=== PATIENT | female | born 1940 ===

== ENCOUNTER 2017-02-19 07:00 | Inpatient (IN) | payer MEDICAID, MEDICARE ==
--- NOTE | 2017-02-19 07:23 | ED PDOC ---
HPI: Abdomen Time Seen by Provider: 02/19/17 07:12 Chief Complaint (Provider): Rectal bleeding History Per: Patient, Family History/Exam Limitations: no limitations Onset/Duration Of Symptoms: Hrs Current Symptoms Are (Timing): Still Present Severity: Mild Last Bowel Movement: Yesterday (last night) Additional Complaint(s): Patient is a 76 year old female with hx of PE x 2, on coumadin, htn, gastritis, and hypothyroidism, presenting to the ED complaining of rectal bleeding since last night. Patient reports originally bright red blood in her stool, then dark red blood in her stool. Patient had a routine colonoscopy x2 weeks ago which she believes was normal (done at [facility]). Patient also complains of shortness of breath, but states she is always short of breath. Denies abdominal pain, vomiting, dysuria, or lightheadedness. PMD: Dr. Justo Yap Past Medical History Reviewed: Historical Data, Nursing Documentation, Vital Signs Vital Signs: Last Vital Signs Temp 97.8 F 02/19/17 13:07 Pulse 103 H 02/19/17 13:07 Resp 20 02/19/17 13:07 BP 123/65 02/19/17 13:07 Pulse Ox 98 02/19/17 13:07 - Medical History PMH: GERD, HTN, Hypothyroidism, Pneumonia, Pulmonary Embolism - Surgical History Surgical History: No Surg Hx - Family History Family History: States: No Known Family Hx - Immunization History Hx Tetanus Toxoid Vaccination: No Hx Influenza Vaccination: No Hx Pneumococcal Vaccination: No - Home Medications Home Medications: Ambulatory Orders Medication Instructions Recorded Albuterol Sulfate [Proair Hfa] 2 puff IH BID PRN 02/19/17 Atenolol [Tenormin] 25 mg PO DAILY 02/19/17 Doxepin [Sinequan] 25 mg PO DAILY 02/19/17 Levothyroxine [Synthroid] 100 mcg PO DAILY 02/19/17 Omeprazole 20 mg PO DAILY 02/19/17 Valsartan [Diovan] 160 mg PO DAILY 02/19/17 Warfarin Sodium [Jantoven] 5 mg PO HS 02/19/17 - Allergies Allergies/Adverse Reactions: Allergies Allergy/AdvReac Type Severity Reaction Status Date / Time No Known Allergies Allergy Verified 12/17/15 15:54 Review of Systems ROS Statement: Except As Marked, All Systems Reviewed And Found Negative Constitutional: Negative for: Fever, Chills ENT: Negative for: Ear Pain Cardiovascular: Negative for: Chest Pain, Palpitations, Paroxysmal Noc. Dyspnea , Light Headedness Respiratory: Positive for: Shortness of Breath (baseline) Gastrointestinal: Positive for: Hematochezia. Negative for: Nausea, Vomiting, Abdominal Pain, Diarrhea, Constipation Genitourinary Female: Negative for: Dysuria, Hematuria Musculoskeletal: Negative for: Neck Pain Skin: Negative for: Rash Neurological: Negative for: Weakness Psych: Negative for: Anxiety Physical Exam - Reviewed Nursing Documentation Reviewed: Yes Vital Signs Reviewed: Yes - Physical Exam Appears: Positive for: Well, Non-toxic, No Acute Distress Head Exam: Positive for: ATRAUMATIC, NORMAL INSPECTION, NORMOCEPHALIC Skin: Positive for: Normal Color, Warm, DRY Eye Exam: Positive for: Normal appearance, EOMI Neck: Positive for: Normal, Painless ROM Cardiovascular/Chest: Positive for: Tachycardia. Negative for: Gallop, Murmur Respiratory: Positive for: Normal Breath Sounds, Other (comfortable). Negative for: Accessory Muscle Use, Rhonchi, Respiratory Distress Gastrointestinal/Abdominal: Positive for: Normal Exam, Soft. Negative for: Tenderness, Mass, Distended, Guarding, Rebound Rectal: Positive for: Other (dark blood on rectal exam) Extremity: Positive for: Normal ROM Neurologic/Psych: Positive for: Alert, Oriented - Laboratory Results Result Diagrams: 02/19/17 07:50 02/19/17 07:50 Medical Decision Making Medical Decision Making: Time: 7:15 Impression: Lower GI bleed v Hemorrhoid vs ruptured diverticulum Plan: -labs -ivf 8:55AM Labs resulted and show hemoglobin at baseline (11). HR improved to 95 after 500cc NS. Bun midly elevated, consistent with GI Bleed. INR:2.7. Paged Dr. DRIVER. Do not see the utility of imaging at this time due to lack of pain and lack of tenderness on exam. Will need GI evaluation and likely endoscopy and repeat colonoscopy. Due to need for anticoagulation and elevated INR, combined with age and presenting tachycardia, will need tele observation for GI evaluation. EKG done at triage shows sinus tach at 105bpm with q waves in lateral leads. No prior for comparison. Denies chest pain and reports baseline shortness of breath. Spoke to Dr. Fitzpatrick who agrees with admission. Courtesy call to PMD Dr. Fracisco Meza called and requesting admission under his name. Reports GI doc is Dr. Blackman and consult placed to him and call made Scribe Attestation: Documented by Evonne Toro acting as a scribe for Nirmala Hill MD. Scribe Attestation: All medical record entries made by the Scribe were at my direction and personally dictated by me. I have reviewed the chart and agree that the record accurately reflects my personal performance of the history, physical exam, medical decision making, and the department course for this patient. I have also personally directed, reviewed, and agree with the discharge instructions and disposition. Disposition - Clinical Impression Clinical Impression: Rectal bleed - Disposition Disposition Time: 08:50 Condition: FAIR
[2017-02-19 08:23] LABS: BASO % 0.7 % (0.0-2.0); EOS # 0.2 K/uL (0.0-0.7); EOS % 3.7 % (0.0-4.0); HEMATOCRIT 33.7 % (34.0-47.0); LYMPH # 1.3 K/uL (1.0-4.3); MEAN CELL VOLUME 89.3 fl (81.0-99.0); MEAN CORPUSCULAR HEMOGLOBIN 29.2 pg (27.0-31.0); MEAN CORPUSCULAR HGB CONC 32.8 g/dL (33.0-37.0); MEAN PLATELET VOLUME 8.8 fl (7.2-11.7); MONO # 0.3 K/uL (0.0-0.8); MONO % 5.3 % (0.0-10.0); NEUT # 4.5 K/uL (1.8-7.0); NEUT % 70.3 % (50.0-75.0); RED CELL DISTRIBUTION WIDTH 15.1 % (11.5-14.5); WHITE BLOOD COUNT 6.3 K/uL (4.8-10.8)
[2017-02-19] MEDS ORDERED: Sodium Chloride 0.9% 1,000 ML IV SCH (08:30)
[2017-02-19 08:39] LABS: PARTIAL THROMBOPLASTIN TIME 34.9 SECONDS (23.3-32.5)
[2017-02-19 08:41] LABS: ALKALINE PHOSPHATASE 66 U/L (38-126); ALT/SGPT 25 U/L (9-52); AST/SGOT 26 U/L (14-36); BILIRUBIN,TOTAL 0.7 mg/dl (0.2-1.3); BLOOD UREA NITROGEN 21 mg/dl (7-17); CALCIUM 8.9 mg/dL (8.4-10.2); CARBON DIOXIDE 27 mmol/L (22-30); CHLORIDE 103 mmol/L (98-107); GFR AFRICAN-AMERICAN > 60; GLUCOSE,RANDOM 142 mg/dL (65-105); LIPASE 71 U/L (23-300); MAGNESIUM 1.8 MG/DL (1.6-2.3); PHOSPHOROUS 3.6 mg/dl (2.5-4.5); POTASSIUM 4.3 MMOL/L (3.6-5.0); SODIUM 143 mmol/l (132-148); TOTAL PROTEIN 7.1 G/DL (6.3-8.2)
[2017-02-19] MEDS ORDERED: Sodium Chloride 0.9% 1,000 ML IV ONE (13:08)
--- NOTE | 2017-02-19 16:58 | RAD ---
HISTORY: Shortness of breath. Semi erect portable study 15:50. COMPARISON: 12/17/2015. FINDINGS: LUNGS: No acute infiltrates. Chronic peripheral infiltrate/scarring right upper lobe. Chronic interstitial lung disease noted. PLEURA: No significant pleural effusion identified, no pneumothorax apparent. CARDIOVASCULAR: No radiographic findings to suggest acute or significant cardiovascular disease. OSSEOUS STRUCTURES: No significant abnormalities. VISUALIZED UPPER ABDOMEN: Normal. OTHER FINDINGS: None. IMPRESSION: No active disease. No significant interval change compared to the prior examination(s).
--- NOTE | 2017-02-19 17:07 | CP.CCUPN ---
CCU Subjective - Physician Review Subjective (Free Text): PIANO BENCH ASSEMBLER PROGRESS NOTE Patient examined, interim events reviewed, discussed with PMD: 76F, PMH: on AC x 24 yrs since meniscal knee surgery resulted in DVT then followed by PTE 12 yrs later and has been on coumadin since, h/o Pulm fibrosis ( IPF? ), no occupational exposure, non-smoker, HTN, hypothyroidism, GERD / Gastritis, underwent Upper and lower Endo 2 weeks ago: now c/o BRBPR onset last night. Denies any rectal or abdominal pain, no recent NASID use, denies any N/V , no dizziness, CP, LOC, falls. Patient did complain of SOB on admission in the ER. Presently sitting up in bed, appears non-distressed, but has had multiple small red bloody BMS >10x. Called by PMD for transfer to ICU for further mgmt. and observation. Afebrile, BP 140/70, HR 110 sinus, RR 16, 98% SPO2 on RA. Allergies: NKDA Home Meds: Valsartan, Warfarin, Omeprazole, Albuterol, Sinequan, Synthroid, Atenol ROS: as above, no other pertinent negs or positives on 12 system review. PMSFH: All nursing and physician documentation reviewed, no new historical data relevant to current medical problems. No other distress noted: EXAM- HEENT: no icterus, pupils equal and reactive NECK: no visible JVD, supple, carotids equal upstroke bilat/no bruits CHEST: decreased BS bases, bilat scattered crackles, no wheezes audible HEART: regular, distant, tachy S1S2, no murmur audible, no rubs. ABD: soft, no increased distention, no focal tenderness, no HSM. BS hypoactive , no abdominal bruits or other masses EXT: trace bilat leg edema, no peripheral/ digital cyanosis, no calf tenderness or palpable cords, distal pulses intact and symmetrical NEURO: no gross focal motor deficits SKIN: no rashes LABS: WBC= 6.3 HGB= 11.0 PLTs= 210K Na= 143 K= 4.3 HCO3= 27 BUN/Cr= 21/0.6 XR=730 PT= 28.7 / INR= 2.76 / PTT= 34.9 ASSESSMENT: 1. LGIB, no severe Anemia, + Warfarin coagulopathy; r/o AVM. Diverticular disease, occult CA 2. Pulm Fibrosis 3. H/o Chronic Thrombotic Disease? PLAN: 1. Transfer to ICU for further mgmt. and observation. Serial CBC, Coags. 2. T&C for PRBCs, consider FFP to at least partially reverse INR for now down to approx. 1.5. Will need at least 4-6 uints FFP. Hold on Vit K reversal due to its longer term effects on coag system (will make Re-AC more difficult later) . 3. IVF hydration. 4. If still bloody BMS evident after partial reversal of INR, consider tagged RBC bleeding scan. 5. GI eval ofr appropriateness of endoscopy. 6. Need old medical records to complete database; questions on need for lifetime AC.
[2017-02-19] MEDS ORDERED: Iohexol 240 (50 ml) PO ONE (18:29)
[2017-02-19 18:37] LABS: HEMATOCRIT 24.8 % (34.0-47.0); MEAN CELL VOLUME 88.5 fl (81.0-99.0); MEAN CORPUSCULAR HEMOGLOBIN 29.9 pg (27.0-31.0); MEAN CORPUSCULAR HGB CONC 33.8 g/dL (33.0-37.0); RED CELL DISTRIBUTION WIDTH 14.9 % (11.5-14.5); WHITE BLOOD COUNT 8.4 K/uL (4.8-10.8)
--- NOTE | 2017-02-19 19:08 | CON ---
DATE: 02/19/2017 REFERRING PHYSICIAN: Dr. Arguello REASON FOR CONSULTATION: Blood in the stool. This is a very yvonne 76-year-old female with a history of PE, on Coumadin, hypertension, gastritis, hypothyroidism. Brought in with rectal bleeding since last night, had bright red blood per stool, th en dark red blood per stool. Apparently, had a colonoscopy a couple weeks ago with my partner in the office, for which I will review the results. No shortness of breath, no fevers, no chills. Some lo ose bowel movements. No pain. Some cramping. No GI distress. PAST MEDICAL HISTORY: As above. PAST SURGICAL HISTORY: As above. MEDICATIONS: Have been reviewed. All other systems have been reviewed and negative apart from the HPI. PHYSICAL EXAMINATION: VITAL SIGNS: Here in the hospital, grossly unremarkable. GENERAL: A pleasant elderly-appearing female, lying in bed, comfortable, in no apparent distress. HEAD: Normocephalic, atraumatic. EYES: Pupils equally reactive to light bilaterally. No conjunctival pallor or icterus. NECK: Supple, normal range of motion. No lymphadenopathy appreciated. LUNGS: Coarse breath sounds bilaterally. HEART: S1, S2, regular rate and rhythm. No murmur appreciated. ABDOMEN: Soft, some discomfort in the left lower quadrant. No rebound, no guarding. RECTAL: Deferred. EXTREMITIES: Pulses present bilaterally. SKIN: Warm, dry and intact. NEUROLOGIC: Alert and oriented x 3. LABORATORIES: Reviewed. WBC 6.3, hemoglobin is 11.9, hematocrit of 33.7. INR is 3.1. BUN 21, crea tinine 0.6. LFTs normal. ASSESSMENT AND PLAN: This is a 76-year-old female with rectal bleeding, unclear etiology of the blee ding, possibly some colitis as she is having some loose stools. Her hemoglobin is 11, INR is 3. Unc lear whether we need to reverse it. We will leave this up to cardiology, primary care team and ICU i ntensivist. From a GI standpoint, we will get a CAT scan of abdomen and pelvis to rule out underlyin g pathology, advance diet as tolerated, monitor hemoglobins q. 12. I will follow patient with you. Will review colonoscopy results. Thank you for the consult. Devaughn La MD, PhD cc:Paolo Arguello MD [id number] TT: 02/19/2017 19:07:21 Confirmation # [id number] Dictation # [id number] en
--- NOTE | 2017-02-19 21:07 | CP.PCM.HP ---
History of Present Illness - History of Present Illness History of Present Illness: 76 yo with hx of PTE/DVT coumadin therapy HTN GERD admitted for BRBPR. Pt had a Endoscopy and colonoscopy 2 weeks ago Present on Admission - Present on Admission Any Indicators Present on Admission: No Past Patient History - Infectious Disease Hx of Infectious Diseases: None - Past Medical History & Family History Past Medical History?: Yes - Past Social History Smoking Status: Never Smoked - CARDIAC Hx Hypertension: Yes - PULMONARY Hx Pneumonia: Yes Hx Pulmonary Embolism: Yes - NEUROLOGICAL Hx Neurological Disorder: No Hx Dizziness: No Hx Migraine: No Hx Seizures: No - HEENT Hx HEENT Problems: No Hx Cataracts: No Hx Glaucoma: No Other/Comment: reading glasses - RENAL Hx Chronic Kidney Disease: No Other/Comment: cysitis - ENDOCRINE/METABOLIC Hx Hypothyroidism: Yes - HEMATOLOGICAL/ONCOLOGICAL Hx Blood Disorders: No Hx AIDS: No Hx Blood Transfusions: No Hx Blood Transfusion Reaction: No Hx Human Immunodeficiency Virus (HIV): No - INTEGUMENTARY Hx Dermatological Problems: No - MUSCULOSKELETAL/RHEUMATOLOGICAL Hx Arthritis: Yes (knees) Hx Back Pain: No Hx Falls: No Hx Unsteady Gait: No - GASTROINTESTINAL Other/Comment: endoscopy, colonoscopy, cholecytectomy - GENITOURINARY/GYNECOLOGICAL Hx Genitourinary Disorders: No - PSYCHIATRIC Hx Psychophysiologic Disorder: No Hx Anxiety: No Hx Depression: Yes Hx Substance Use: No - SURGICAL HISTORY Hx Surgeries: Yes Hx Cholecystectomy: Yes Hx Orthopedic Surgery: Yes (knee replacement) Other/Comment: cholectectomy, blood clot in left to lung, filter - ANESTHESIA Hx Anesthesia: Yes Hx Anesthesia Reactions: No Hx Malignant Hyperthermia: No Meds Allergies/Adverse Reactions: Allergies Allergy/AdvReac Type Severity Reaction Status Date / Time No Known Allergies Allergy Verified 12/17/15 15:54 Physical Exam - Respiratory Exam Respiratory Exam: NORMAL BREATHING PATTERN - Cardiovascular Exam Cardiovascular Exam: REGULAR RHYTHM - GI/Abdominal Exam GI & Abdominal Exam: Normal Bowel Sounds Results - Vital Signs Recent Vital Signs: Last Vital Signs Temp 98.3 F 02/19/17 15:46 Pulse 71 02/19/17 17:58 Resp 16 02/19/17 17:58 BP 110/59 L 02/19/17 17:58 Pulse Ox 96 02/19/17 17:58 - Labs Result Diagrams: 02/19/17 18:32 02/19/17 07:50 Labs: Laboratory Results - last 24 hr 02/19/17 02/19/17 02/19/17 11:00 16:48 18:32 WBC 8.4 RBC 2.81 L Hgb 8.4 L D Hct 24.8 L MCV 88.5 MCH 29.9 MCHC 33.8 RDW 14.9 H Plt Count 210 PT 31.9 H* INR 3.07 H Blood Type Confirm O POSITIVE Assessment & Plan - Assessment and Plan (Free Text) Assessment: LGI bleed BRBPR Hx of PTE/DVT coumadin therapy s/p Endoscopy and colonoscopy 2 weeks ago admit to ICU IVF transfuse FFP monitor H&H GI consult HTN GERD - Date & Time Date: 02/19/17 Time: 22:22
[2017-02-19] MEDS ORDERED: Iohexol 300 100 ML IJ ONE (22:55)
[2017-02-19] MEDS ORDERED: Sodium Chloride 0.9% 50 ML IV ONE (22:55)
--- NOTE | 2017-02-20 00:26 | CT ---
EXAM: CT Abdomen and Pelvis With Intravenous Contrast CLINICAL HISTORY: 76 years old, female; Signs and symptoms; Other: Gi bleed; Additional info: Gib TECHNIQUE: Axial computed tomography images of the abdomen and pelvis with intravenous contrast. This CT exam was performed using one or more of the following dose reduction techniques: automated exposure control, adjustment of the mA and/or kV according to patient size, and/or use of iterative reconstruction technique. Coronal and sagittal reformatted images were created and reviewed. CONTRAST: 95 mL of omni administered intravenously. EXAM DATE/TIME: 02/19/2017 6:29 PM COMPARISON: No relevant prior studies available. FINDINGS: Chronic appearing interstitial disease with peripheral scarring/fibrosis. Cholecystectomy clips are present. IVC filter. There is very mild intrahepatic duct dilation likely secondary to cholecystectomy. The spleen is somewhat lobulated. Slight fatty atrophy of the pancreas. No hydronephrosis or perinephric stranding. The small bowel appears normal. Moderate amount of stool in the cecum. Ileocecal valve is identified on axial image [id number].The appendix is not identified however there are no secondary signs of appendicitis such as pericecal stranding. There are two umbilical fat hernias. There are degenerative changes in the osseous structures. Chronic bilateral spondylolysis L5. IMPRESSION: No acute findings.
[2017-02-20 05:11] LABS: HEMATOCRIT 24.8 % (34.0-47.0); MEAN CELL VOLUME 88.2 fl (81.0-99.0); MEAN CORPUSCULAR HEMOGLOBIN 29.8 pg (27.0-31.0); MEAN CORPUSCULAR HGB CONC 33.8 g/dL (33.0-37.0); RED CELL DISTRIBUTION WIDTH 14.6 % (11.5-14.5); WHITE BLOOD COUNT 6.6 K/uL (4.8-10.8)
[2017-02-20 05:17] LABS: ALKALINE PHOSPHATASE 58 U/L (38-126); ALT/SGPT 27 U/L (9-52); AST/SGOT 25 U/L (14-36); BLOOD UREA NITROGEN 23 mg/dl (7-17); CALCIUM 8.7 mg/dL (8.4-10.2); CARBON DIOXIDE 27 mmol/L (22-30); CHLORIDE 108 mmol/L (98-107); GFR AFRICAN-AMERICAN > 60; GLUCOSE,RANDOM 96 mg/dL (65-105); SODIUM 144 mmol/l (132-148); TOTAL PROTEIN 5.9 G/DL (6.3-8.2)
[2017-02-20] MEDS: Levothyroxine 100 MCG TAB PO SCH (06:15)
--- NOTE | 2017-02-20 08:13 | CP.CCUPN ---
CCU Subjective - Physician Review Subjective (Free Text): UTILITY BILL COMPLAINTS INVESTIGATOR PROGRESS NOTE Patient examined, interim events reviewed: Awake and alert, no distress, appears slightly tachypneic otherwise, but denies any subjective dyspnea /CP / palpitations, less tachycardic than yesterday. Still having liquid red BMs, denies any abdominal pain. Started on PO diet as per GI. Afebrile, BP 130/60, HR 73 sinus, RR 24-30, 97% SPO2 on RA. ROS: as above, no other pertinent negs or positives on 12 system review. PMSFH: All nursing and physician documentation reviewed, no new historical data relevant to current medical problems. No other distress noted: EXAM- HEENT: no icterus, pupils equal and reactive NECK: no visible JVD, supple, carotids equal upstroke bilat/no bruits CHEST: decreased BS bases, bilat scattered crackles, no wheezes audible HEART: regular, distant, tachy S1S2, no murmur audible, no rubs. ABD: soft, no increased distention, no focal tenderness, no HSM. BS hypoactive , no abdominal bruits or other masses EXT: trace bilat leg edema, no peripheral/ digital cyanosis, no calf tenderness or palpable cords, distal pulses intact and symmetrical NEURO: no gross focal motor deficits SKIN: no rashes LABS: WBC= 6.6 HGB= 8.4 PLTs= 162K Na= 144 K= 4.0 HCO3= 27 BUN/Cr= 23/0.5 BS=96 INR= 1.59 ASSESSMENT: 1. LGIB, no severe Anemia, + Warfarin coagulopathy; r/o AVM. Diverticular disease, occult CA, ? colitis 2. Pulm Fibrosis 3. H/o Chronic Thrombotic Disease? PLAN: 1. CTAP done last evening as per GI: results reviewed, no specific findings noted relative to GIB. There is evidence of an IVC filter. 2. Near-competition of 2nd PRBC unit, has recd total of 4 units FFP so far and INR is down from 3.0 to 1.59 this AM. Continue to monitor serial CBC. 3. Will discuss with GI regarding utility of Bleeding scan. Consider Surgical eval as well just in case. 4. Stop IVFs given volume recd from blood products.
[2017-02-20] MEDS ORDERED: Levothyroxine 100 MCG TAB PO SCH (09:00)
--- NOTE | 2017-02-20 12:41 | PQF GENQUE ---
Dr. Chaudhari, Please clarify the type of anemia: if known: i.e. Blood loss anemia, acute Blood loss anemia, chronic Chronic anemia Deficiency anemia (please specify type) Due to/in/with antineoplastic chemotherapy Due to/in/with chronic kidney disease Due to/in/with kidney failure Due to/in/with neoplastic disease Iron deficiency anemia Macrocytic anemia Microcytic anemia Normocytic anemia Pernicious anemia Other anemia (please specify) OR: Unable to determine OR: Unknown Critical Care Note: 02/20 Crit Care;Assessment1. LGIB, no severe Anemia, + Warfarin coagulopathy; r/o AVM. Diverticular disease, occult CA, ? colitis 2. Pulm Fibrosis 3. H/o Chronic Thrombotic Disease? PLAN: 1. CTAP done last evening as per GI: results reviewed, no specific findings noted relative to GIB. There is evidence of an IVC filter. 2. Near-competition of 2nd PRBC unit, has recd total of 4 units FFP so far and INR is down from 3.0 to 1.59 this AM. Continue to monitor serial CBC. 3. Will discuss with GI regarding utility of Bleeding scan. Consider Surgical eval as well just in case. 4. Stop IVFs given volume recd from blood products. H/H:11.0/33.7->8.4/24.8->8.4/24.8 This form is a permanent part of the medical record Clarification of your documentation is requested to better reflect the severity of illness and intensity of treatment of your patient. Indicators present [] Specify: [] [] Specify: [] [] Specify: [] [] Specify: [] Location in the medical record that reflects the above clinical findings: [] Treatment Provided: [] PHYSICIAN'S RESPONSE Based on your medical judgment of the clinical indicators outlined above please clarify the following: [] Practitioner response [] If unable to determine, please check the box, sign and date. Present On Admission (POA) Indicator: [] Present at the time of admission [] Not present at the time of admission [] Clinically Undetermined In responding to this query, please exercise your independent professional judgment. The fact that a question is asked does not imply that any particular answer is desired or expected. Thank you for your clarification on this documentation. If you have any questions please call. * Thank you, Isabell Amaya RN BSN ext. #[phone] MTDD
--- NOTE | 2017-02-20 12:49 | CP.PCM.PN ---
Subjective - Date & Time of Evaluation Date of Evaluation: 02/20/17 Time of Evaluation: 12:45 - Subjective Subjective: no bleeding, brown bowel movement Objective - Vital Signs/Intake and Output Vital Signs (last 24 hours): Temp Pulse Resp BP Pulse Ox 98.3 F 87 27 H 137/57 L 97 02/20/17 12:06 02/20/17 12:06 02/20/17 12:06 02/20/17 12:06 02/20/17 12:06 Intake and Output: 02/20/17 02/20/17 06:59 18:59 Intake Total 1300 650 Output Total 1000 400 Balance 300 250 - Medications Medications: Current Medications Atenolol (Tenormin) 25 mg PO DAILY [facility] Last Admin: 02/20/17 08:37 Dose: 25 mg Levothyroxine Sodium (Synthroid) 100 mcg PO DAILY@0630 [facility] Last Admin: 02/20/17 06:15 Dose: 100 mcg Pantoprazole Sodium (Protonix Inj) 40 mg IVP DAILY [facility] Last Admin: 02/20/17 08:38 Dose: 40 mg Valsartan (Diovan) 160 mg PO DAILY [facility] Last Admin: 02/20/17 08:38 Dose: 160 mg - Labs Labs: 02/20/17 04:35 02/20/17 04:35 PT 16.5 SECONDS (9.6-11.2) H D 02/20/17 04:35 INR 1.59 (0.92-1.08) H D 02/20/17 04:35 APTT 34.9 SECONDS (23.3-32.5) H 02/19/17 07:50 - GI/Abdominal Exam GI & Abdominal Exam: Soft, Normal Bowel Sounds Assessment and Plan - Assessment and Plan (Free Text) Assessment: 76 yo female with BRbPR Ct noted hgb stable once INR corrected no active bleeding
[2017-02-20 15:09] LABS: BASO % 0.5 % (0.0-2.0); EOS # 0.5 K/uL (0.0-0.7); EOS % 7.7 % (0.0-4.0); HEMATOCRIT 25.2 % (34.0-47.0); LYMPH # 1.5 K/uL (1.0-4.3); LYMPH % 25.9 % (20.0-40.0); MEAN CELL VOLUME 87.9 fl (81.0-99.0); MEAN CORPUSCULAR HEMOGLOBIN 29.9 pg (27.0-31.0); MEAN PLATELET VOLUME 8.3 fl (7.2-11.7); MONO # 0.4 K/uL (0.0-0.8); MONO % 7.6 % (0.0-10.0); NEUT # 3.4 K/uL (1.8-7.0); NEUT % 58.3 % (50.0-75.0); RED CELL DISTRIBUTION WIDTH 14.6 % (11.5-14.5); WHITE BLOOD COUNT 5.9 K/uL (4.8-10.8)
--- NOTE | 2017-02-20 19:40 | CP.PCM.PN ---
Subjective - Date & Time of Evaluation Date of Evaluation: 02/20/17 Time of Evaluation: 22:22 - Subjective Subjective: Above noted Objective - Vital Signs/Intake and Output Vital Signs (last 24 hours): Temp Pulse Resp BP Pulse Ox 98.7 F 76 25 H 127/70 96 02/20/17 16:00 02/20/17 18:00 02/20/17 18:00 02/20/17 18:00 02/20/17 18:00 Intake and Output: 02/20/17 02/21/17 18:59 06:59 Intake Total 2470 Output Total 1300 Balance 1170 - Medications Medications: Current Medications Atenolol (Tenormin) 25 mg PO DAILY [facility] Last Admin: 02/20/17 08:37 Dose: 25 mg Levothyroxine Sodium (Synthroid) 100 mcg PO DAILY@0630 [facility] Last Admin: 02/20/17 06:15 Dose: 100 mcg Pantoprazole Sodium (Protonix Inj) 40 mg IVP DAILY [facility] Last Admin: 02/20/17 08:38 Dose: 40 mg Valsartan (Diovan) 160 mg PO DAILY [facility] Last Admin: 02/20/17 08:38 Dose: 160 mg - Labs Labs: 02/20/17 15:05 02/20/17 04:35 PT 16.5 SECONDS (9.6-11.2) H D 02/20/17 04:35 INR 1.59 (0.92-1.08) H D 02/20/17 04:35 APTT 34.9 SECONDS (23.3-32.5) H 02/19/17 07:50 - Respiratory Exam Respiratory Exam: NORMAL BREATHING PATTERN - Cardiovascular Exam Cardiovascular Exam: REGULAR RHYTHM - GI/Abdominal Exam GI & Abdominal Exam: Normal Bowel Sounds Assessment and Plan - Assessment and Plan (Free Text) Assessment: LGI bleed BRBPR etiol? Hx of PTE/DVT coumadin therapy s/p Endoscopy and colonoscopy 2 weeks ago ICU transfuse FFP + 2 units RBC monitor H&H INR 1.59 GI consult HTN GERD
[2017-02-21 06:10] LABS: BASO % 0.6 % (0.0-2.0); EOS # 0.5 K/uL (0.0-0.7); EOS % 9.3 % (0.0-4.0); HEMATOCRIT 27.7 % (34.0-47.0); LYMPH # 1.6 K/uL (1.0-4.3); MEAN CELL VOLUME 87.8 fl (81.0-99.0); MEAN CORPUSCULAR HEMOGLOBIN 29.6 pg (27.0-31.0); MEAN CORPUSCULAR HGB CONC 33.7 g/dL (33.0-37.0); MEAN PLATELET VOLUME 8.6 fl (7.2-11.7); MONO # 0.4 K/uL (0.0-0.8); MONO % 7.7 % (0.0-10.0); NEUT # 2.7 K/uL (1.8-7.0); NEUT % 51.4 % (50.0-75.0); RED CELL DISTRIBUTION WIDTH 14.9 % (11.5-14.5); WHITE BLOOD COUNT 5.2 K/uL (4.8-10.8)
[2017-02-21 06:24] LABS: ALKALINE PHOSPHATASE 68 U/L (38-126); ALT/SGPT 27 U/L (9-52); AST/SGOT 24 U/L (14-36); BLOOD UREA NITROGEN 15 mg/dl (7-17); CALCIUM 8.9 mg/dL (8.4-10.2); CARBON DIOXIDE 28 mmol/L (22-30); CHLORIDE 107 mmol/L (98-107); GFR AFRICAN-AMERICAN > 60; GLUCOSE,RANDOM 105 mg/dL (65-105); POTASSIUM 3.3 MMOL/L (3.6-5.0); SODIUM 146 mmol/l (132-148); TOTAL PROTEIN 6.5 G/DL (6.3-8.2)
[2017-02-21 06:35] LABS: PARTIAL THROMBOPLASTIN TIME 27.8 SECONDS (23.3-32.5)
[2017-02-21] MEDS: Levothyroxine 100 MCG TAB PO SCH (06:44)
--- NOTE | 2017-02-21 09:23 | CP.CCUPN ---
CCU Subjective - Physician Review Events Since Last Encounter (Free Text): 02/21/17 09:20 Patient awake, no distress, no fever, no vomiting, no pressors, follow commands , events reviewed CCU Objective - Vital Signs / Intake & Output Vital Signs (Last 4 hours): Vital Signs Temp Pulse Resp BP Pulse Ox 02/21/17 09:00 78 158/76 H 02/21/17 08:00 98.2 F 78 14 158/66 H 98 02/21/17 06:00 72 23 156/94 H 97 Intake and Output (Last 8hrs): Intake & Output 02/20/17 02/21/17 02/21/17 22:59 06:59 14:59 Intake Total 680 160 500 Output Total 1100 550 Balance -420 -390 500 Intake: Oral 680 160 500 Output: Urine 1100 550 Urine, Voided 1100 550 Other: # Bowel Movements 1 - Physical Exam Head: Positive for: Atraumatic, Normocephalic Pupils: Positive for: PERRL Conjunctiva: Positive for: Normal Mouth: Positive for: Moist Mucous Membranes Nose (External): Positive for: Atraumatic Neck: Positive for: Normal Range of Motion Respiratory/Chest: Positive for: Clear to Auscultation Cardiovascular: Positive for: Regular Rate and Rhythm Abdomen: Positive for: Normal Bowel Sounds Upper Extremity: Positive for: Normal Inspection Lower Extremity: Positive for: Normal Inspection Neurological: Positive for: Speech Normal Skin: Positive for: Warm Psychiatric: Positive for: Alert, Oriented x 3 - Medications Active Medications: Active Medications Generic Name Dose Route Start Last Admin Trade Name Freq PRN Reason Stop Dose Admin Atenolol 25 mg 02/20/17 09:00 02/21/17 09:00 Tenormin PO 25 mg DAILY EDER Administration Levothyroxine Sodium 100 mcg 02/20/17 06:30 02/21/17 06:44 Synthroid PO 100 mcg DAILY@0630 EDER Administration Pantoprazole Sodium 40 mg 02/20/17 09:00 02/21/17 09:00 Protonix Inj IVP 40 mg DAILY EDER Administration Valsartan 160 mg 02/20/17 09:00 02/21/17 09:00 Diovan PO 160 mg DAILY EDER Administration - Patient Studies Lab Studies: Microbiology Studies 02/19/17 17:59 MRSA Culture (Admit) - Final Naris MRSA NOT DETECTED Lab Studies 02/21/17 02/20/17 Range/Units 05:53 15:05 WBC 5.2 5.9 (4.8-10.8) K/uL RBC 3.16 L 2.86 L (3.80-5.20) Mil/uL Hgb 9.3 L 8.6 L (12.0-16.0) g/dL Hct 27.7 L 25.2 L (34.0-47.0) % MCV 87.8 87.9 (81.0-99.0) fl MCH 29.6 29.9 (27.0-31.0) pg MCHC 33.7 34.0 (33.0-37.0) g/dL RDW 14.9 H 14.6 H (11.5-14.5) % Plt Count 156 143 (130-400) K/uL MPV 8.6 8.3 (7.2-11.7) fl Neut % (Auto) 51.4 58.3 (50.0-75.0) % Lymph % (Auto) 31.0 25.9 (20.0-40.0) % [place] % (Auto) 7.7 7.6 (0.0-10.0) % Eos % (Auto) 9.3 H 7.7 H (0.0-4.0) % Baso % (Auto) 0.6 0.5 (0.0-2.0) % Neut # 2.7 3.4 (1.8-7.0) K/uL Lymph # 1.6 1.5 (1.0-4.3) K/uL [place] # 0.4 0.4 (0.0-0.8) K/uL Eos # 0.5 0.5 (0.0-0.7) K/uL Baso # 0.0 0.0 (0.0-0.2) K/uL PT 13.8 H (9.6-11.2) SECONDS INR 1.33 H (0.92-1.08) APTT 27.8 D (23.3-32.5) SECONDS Sodium 146 (132-148) mmol/l Potassium 3.3 L (3.6-5.0) MMOL/L Chloride 107 (98-107) mmol/L Carbon Dioxide 28 (22-30) mmol/L Anion Gap 14 (10-20) BUN 15 (7-17) mg/dl Creatinine 0.6 L (0.7-1.2) mg/dL Est GFR ( Amer) > 60 Est GFR (Non-Af Amer) > 60 Random Glucose 105 (65-105) mg/dL Calcium 8.9 (8.4-10.2) mg/dL Total Bilirubin 1.0 (0.2-1.3) mg/dl AST 24 (14-36) U/L ALT 27 (9-52) U/L Alkaline Phosphatase 68 (38-126) U/L Total Protein 6.5 (6.3-8.2) G/DL Albumin 3.3 L (3.5-5.0) g/dL Globulin 3.2 (2.2-3.9) gm/dL Albumin/Globulin Ratio 1.0 (1.0-2.1) Laboratory Results - last 24 hr 02/20/17 02/21/17 15:05 05:53 WBC 5.9 5.2 RBC 2.86 L 3.16 L Hgb 8.6 L 9.3 L Hct 25.2 L 27.7 L MCV 87.9 87.8 MCH 29.9 29.6 MCHC 34.0 33.7 RDW 14.6 H 14.9 H Plt Count 143 156 MPV 8.3 8.6 Neut % (Auto) 58.3 51.4 Lymph % (Auto) 25.9 31.0 [place] % (Auto) 7.6 7.7 Eos % (Auto) 7.7 H 9.3 H Baso % (Auto) 0.5 0.6 Neut # 3.4 2.7 Lymph # 1.5 1.6 [place] # 0.4 0.4 Eos # 0.5 0.5 Baso # 0.0 0.0 PT 13.8 H INR 1.33 H APTT 27.8 D Sodium 146 Potassium 3.3 L Chloride 107 Carbon Dioxide 28 Anion Gap 14 BUN 15 Creatinine 0.6 L Est GFR ( Amer) > 60 Est GFR (Non-Af Amer) > 60 Random Glucose 105 Calcium 8.9 Total Bilirubin 1.0 AST 24 ALT 27 Alkaline Phosphatase 68 Total Protein 6.5 Albumin 3.3 L Globulin 3.2 Albumin/Globulin Ratio 1.0 Critical Care Progress Note - Nutrition Nutrition: Nutrition Category Date Time Status Regular Diet [DIET] Diets 02/19/17 Dinner Active Assessment/Plan - Assessment and Plan (Free Text) Assessment: A/P lower GI bleeding, anemia, coagulopathy, pulmonary fibrosis, HTN, h/o PE/DVT - Continue meds - GI follow up - Follow up CBC - Transfusion as needed
--- NOTE | 2017-02-21 18:50 | CP.PCM.CON ---
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 The patient reports to bright red blood per rectum and was emergently brought to the emergency room. Her cougulopathy was reversed and she was transfused 2U PRBC. She has never had bleeding like this before. She has been taking coumadin since 1993. She suffered a DVT and PE in the setting of knee surgery. She underwent IVC filter placement and was placed on coumadin. While on coumadin in 2003 she was diagnosed with an unprovoked PE. She is unsure if her INR was therapeutic during that episode. Currently she denies further bleeding per rectum and notes her stool is brown. Past medical history: HTN, recurrent venous clotting. Past surgical history: Knee surgery, hysterectomy Family history: Denies hematologic and oncologic problems Social history: Denies tobacco, alcohol, and illicit drug use. Allergies: NKA Review of systems: All remaining review of systems including HEENT, cardiovascular, respiratory, gastrointestinal, genitourinary, musculoskeletal, dermatologic, neurologic, and psychiatric are negative unless mentioned in the HPI. Past Patient History - Infectious Disease Hx of Infectious Diseases: None - Past Medical History & Family History Past Medical History?: Yes - Past Social History Smoking Status: Never Smoked - CARDIAC Hx Hypertension: Yes - PULMONARY Hx Pneumonia: Yes Hx Pulmonary Embolism: Yes - NEUROLOGICAL Hx Neurological Disorder: No Hx Dizziness: No Hx Migraine: No Hx Seizures: No - HEENT Hx HEENT Problems: No Hx Cataracts: No Hx Glaucoma: No Other/Comment: reading glasses - RENAL Hx Chronic Kidney Disease: No Other/Comment: cysitis - ENDOCRINE/METABOLIC Hx Hypothyroidism: Yes - HEMATOLOGICAL/ONCOLOGICAL Hx Blood Disorders: No Hx AIDS: No Hx Blood Transfusions: No Hx Blood Transfusion Reaction: No Hx Human Immunodeficiency Virus (HIV): No - INTEGUMENTARY Hx Dermatological Problems: No - MUSCULOSKELETAL/RHEUMATOLOGICAL Hx Arthritis: Yes (knees) Hx Back Pain: No Hx Falls: No Hx Unsteady Gait: No - GASTROINTESTINAL Other/Comment: endoscopy, colonoscopy, cholecytectomy - GENITOURINARY/GYNECOLOGICAL Hx Genitourinary Disorders: No - PSYCHIATRIC Hx Psychophysiologic Disorder: No Hx Anxiety: No Hx Depression: Yes Hx Substance Use: No - SURGICAL HISTORY Hx Surgeries: Yes Hx Cholecystectomy: Yes Hx Orthopedic Surgery: Yes (knee replacement) Other/Comment: cholectectomy, blood clot in left to lung, filter - ANESTHESIA Hx Anesthesia: Yes Hx Anesthesia Reactions: No Hx Malignant Hyperthermia: No Meds Allergies/Adverse Reactions: Allergies Allergy/AdvReac Type Severity Reaction Status Date / Time No Known Allergies Allergy Verified 12/17/15 15:54 - Medications Medications: Current Medications Atenolol (Tenormin) 25 mg PO DAILY [facility] Last Admin: 02/21/17 09:00 Dose: 25 mg Levothyroxine Sodium (Synthroid) 100 mcg PO DAILY@0630 [facility] Last Admin: 02/21/17 06:44 Dose: 100 mcg Pantoprazole Sodium (Protonix Inj) 40 mg IVP DAILY [facility] Last Admin: 02/21/17 09:00 Dose: 40 mg Valsartan (Diovan) 160 mg PO DAILY [facility] Last Admin: 02/21/17 09:00 Dose: 160 mg Physical Exam - Head Exam Head Exam: ATRAUMATIC - Eye Exam Eye Exam: Normal appearance - ENT Exam ENT Exam: Mucous Membranes Dry - Respiratory Exam Respiratory Exam: NORMAL BREATHING PATTERN - Cardiovascular Exam Cardiovascular Exam: +S1, +S2 - GI/Abdominal Exam GI & Abdominal Exam: Normal Bowel Sounds - Extremities Exam Extremities exam: Positive for: normal inspection - Neurological Exam Neurological exam: Oriented x3 - Psychiatric Exam Psychiatric exam: Normal Affect, Normal Mood - Skin Skin Exam: Warm Results - Vital Signs Recent Vital Signs: Last Vital Signs Temp 98.6 F 02/21/17 16:00 Pulse 78 02/21/17 18:00 Resp 17 02/21/17 18:00 BP 149/58 L 02/21/17 18:00 Pulse Ox 99 02/21/17 18:00 - Labs Result Diagrams: 02/21/17 05:53 02/21/17 05:53 Labs: Laboratory Results - last 24 hr 02/21/17 05:53 WBC 5.2 RBC 3.16 L Hgb 9.3 L Hct 27.7 L MCV 87.8 MCH 29.6 MCHC 33.7 RDW 14.9 H Plt Count 156 MPV 8.6 Neut % (Auto) 51.4 Lymph % (Auto) 31.0 [place] % (Auto) 7.7 Eos % (Auto) 9.3 H Baso % (Auto) 0.6 Neut # 2.7 Lymph # 1.6 [place] # 0.4 Eos # 0.5 Baso # 0.0 PT 13.8 H INR 1.33 H APTT 27.8 D Sodium 146 Potassium 3.3 L Chloride 107 Carbon Dioxide 28 Anion Gap 14 BUN 15 Creatinine 0.6 L Est GFR ( Amer) > 60 Est GFR (Non-Af Amer) > 60 Random Glucose 105 Calcium 8.9 Total Bilirubin 1.0 AST 24 ALT 27 Alkaline Phosphatase 68 Total Protein 6.5 Albumin 3.3 L Globulin 3.2 Albumin/Globulin Ratio 1.0 Assessment & Plan (1) Anemia Assessment and Plan: GI bleeding; appears resolved s/p transfusion support will check iron, b12, folate stores and supplement if deficient Status: Acute (2) History of pulmonary embolism Assessment and Plan: 1st event appears to have been provoked by orthopedic surgery and the pt underwent IVC filter placement and was started on coumadin 2nd about 10 years later was unprovoked and occurred while on coumadin and with an IVC filter in place; unclear if clot originated above/on filter agree with holding anticoagulation given GI bleeding future anticoagulation will depend on cause of bleeding and risks/benefits of further anticoagulation will order abdominal ultrasound to evaluate IVC filter further discussed at length with the pt and her family Thank you for this interesting consult. Status: Acute
--- NOTE | 2017-02-21 20:27 | CP.PCM.PN ---
Subjective - Date & Time of Evaluation Date of Evaluation: 02/21/17 Time of Evaluation: 22:22 - Subjective Subjective: Above noted Objective - Vital Signs/Intake and Output Vital Signs (last 24 hours): Temp Pulse Resp BP Pulse Ox 98.6 F 78 17 149/58 L 99 02/21/17 16:00 02/21/17 18:00 02/21/17 18:00 02/21/17 18:00 02/21/17 18:00 Intake and Output: 02/21/17 02/22/17 18:59 06:59 Intake Total 1999 Balance 1999 - Medications Medications: Current Medications Atenolol (Tenormin) 25 mg PO DAILY [facility] Last Admin: 02/21/17 09:00 Dose: 25 mg Levothyroxine Sodium (Synthroid) 100 mcg PO DAILY@0630 [facility] Last Admin: 02/21/17 06:44 Dose: 100 mcg Pantoprazole Sodium (Protonix Inj) 40 mg IVP DAILY [facility] Last Admin: 02/21/17 09:00 Dose: 40 mg Valsartan (Diovan) 160 mg PO DAILY [facility] Last Admin: 02/21/17 09:00 Dose: 160 mg - Labs Labs: 02/21/17 05:53 02/21/17 05:53 PT 13.8 SECONDS (9.6-11.2) H 02/21/17 05:53 INR 1.33 (0.92-1.08) H 02/21/17 05:53 APTT 27.8 SECONDS (23.3-32.5) D 02/21/17 05:53 - Respiratory Exam Respiratory Exam: NORMAL BREATHING PATTERN - Cardiovascular Exam Cardiovascular Exam: REGULAR RHYTHM - GI/Abdominal Exam GI & Abdominal Exam: Normal Bowel Sounds Assessment and Plan - Assessment and Plan (Free Text) Assessment: LGI bleed BRBPR etiol? Hx of PTE/DVT coumadin therapy s/p Endoscopy and colonoscopy 2 weeks ago transfused FFP + 2 units RBC monitor H&H INR 1.59 GI Hematology Hx PTE/DVT Chronic cough Pulnonary consult HTN GERD S/P cholecystectomy
[2017-02-22 05:28] LABS: BASO % 0.5 % (0.0-2.0); EOS # 0.6 K/uL (0.0-0.7); HEMATOCRIT 28.9 % (34.0-47.0); LYMPH # 1.5 K/uL (1.0-4.3); LYMPH % 27.3 % (20.0-40.0); MEAN CELL VOLUME 88.5 fl (81.0-99.0); MEAN CORPUSCULAR HEMOGLOBIN 29.4 pg (27.0-31.0); MEAN CORPUSCULAR HGB CONC 33.2 g/dL (33.0-37.0); MEAN PLATELET VOLUME 8.1 fl (7.2-11.7); MONO # 0.4 K/uL (0.0-0.8); MONO % 6.7 % (0.0-10.0); NEUT % 54.5 % (50.0-75.0); RED CELL DISTRIBUTION WIDTH 15.1 % (11.5-14.5); WHITE BLOOD COUNT 5.5 K/uL (4.8-10.8)
[2017-02-22 05:39] LABS: ALKALINE PHOSPHATASE 67 U/L (38-126); ALT/SGPT 27 U/L (9-52); AST/SGOT 28 U/L (14-36); BILIRUBIN,TOTAL 0.7 mg/dl (0.2-1.3); BLOOD UREA NITROGEN 12 mg/dl (7-17); CALCIUM 9.3 mg/dL (8.4-10.2); CARBON DIOXIDE 29 mmol/L (22-30); CHLORIDE 106 mmol/L (98-107); GFR AFRICAN-AMERICAN > 60; GLUCOSE,RANDOM 110 mg/dL (65-105); SODIUM 146 mmol/l (132-148); TOTAL PROTEIN 6.9 G/DL (6.3-8.2)
[2017-02-22] MEDS: Levothyroxine 100 MCG TAB PO SCH (05:51)
[2017-02-22 05:53] LABS: RETIC% 1.4 % (0.5-1.5)
--- NOTE | 2017-02-22 07:23 | CP.CCUPN ---
CCU Subjective - Physician Review Events Since Last Encounter (Free Text): 02/22/17 07:23 Patient awake, no distress, no fever, no vomiting, no pressors, follow commands , events reviewed CCU Objective - Vital Signs / Intake & Output Vital Signs (Last 4 hours): Vital Signs Temp Pulse Resp BP Pulse Ox 02/22/17 04:00 97.6 F 67 17 134/53 L 99 Intake and Output (Last 8hrs): Intake & Output 02/21/17 02/22/17 02/22/17 22:59 06:59 14:59 Intake Total 810 200 Output Total 500 300 Balance 310 -100 Intake: IV 0 Oral 810 200 Output: Urine 500 300 Urine, Voided 500 300 Other: # Voids Urine, Voided 1 # Bowel Movements 1 - Physical Exam Head: Positive for: Atraumatic, Normocephalic Pupils: Positive for: PERRL Conjunctiva: Positive for: Normal Mouth: Positive for: Moist Mucous Membranes Nose (External): Positive for: Atraumatic Neck: Positive for: Normal Range of Motion Respiratory/Chest: Positive for: Clear to Auscultation Cardiovascular: Positive for: Regular Rate and Rhythm Abdomen: Positive for: Normal Bowel Sounds Upper Extremity: Positive for: Normal Inspection Lower Extremity: Positive for: Normal Inspection Neurological: Positive for: Speech Normal Skin: Positive for: Warm Psychiatric: Positive for: Alert, Oriented x 3 - Medications Active Medications: Active Medications Generic Name Dose Route Start Last Admin Trade Name Freq PRN Reason Stop Dose Admin Atenolol 25 mg 02/20/17 09:00 02/21/17 09:00 Tenormin PO 25 mg DAILY EDER Administration Levothyroxine Sodium 100 mcg 02/20/17 06:30 02/22/17 05:51 Synthroid PO 100 mcg DAILY@0630 EDER Administration Pantoprazole Sodium 40 mg 02/20/17 09:00 02/21/17 09:00 Protonix Inj IVP 40 mg DAILY EDER Administration Valsartan 160 mg 02/20/17 09:00 02/21/17 09:00 Diovan PO 160 mg DAILY EDER Administration - Patient Studies Lab Studies: Lab Studies 02/22/17 Range/Units 04:20 WBC 5.5 (4.8-10.8) K/uL RBC 3.27 L (3.80-5.20) Mil/uL Hgb 9.6 L (12.0-16.0) g/dL Hct 28.9 L (34.0-47.0) % MCV 88.5 (81.0-99.0) fl MCH 29.4 (27.0-31.0) pg MCHC 33.2 (33.0-37.0) g/dL RDW 15.1 H (11.5-14.5) % Plt Count 170 (130-400) K/uL MPV 8.1 (7.2-11.7) fl Neut % (Auto) 54.5 (50.0-75.0) % Lymph % (Auto) 27.3 (20.0-40.0) % [place] % (Auto) 6.7 (0.0-10.0) % Eos % (Auto) 11.0 H (0.0-4.0) % Baso % (Auto) 0.5 (0.0-2.0) % Neut # 3.0 (1.8-7.0) K/uL Lymph # 1.5 (1.0-4.3) K/uL [place] # 0.4 (0.0-0.8) K/uL Eos # 0.6 (0.0-0.7) K/uL Baso # 0.0 (0.0-0.2) K/uL [place]etic Count 1.4 (0.5-1.5) % PT 11.8 H (9.6-11.2) SECONDS INR 1.13 H (0.92-1.08) Sodium 146 (132-148) mmol/l Potassium 4.0 (3.6-5.0) MMOL/L Chloride 106 (98-107) mmol/L Carbon Dioxide 29 (22-30) mmol/L Anion Gap 15 (10-20) BUN 12 (7-17) mg/dl Creatinine 0.6 L (0.7-1.2) mg/dL Est GFR ( Amer) > 60 Est GFR (Non-Af Amer) > 60 Random Glucose 110 H (65-105) mg/dL Calcium 9.3 (8.4-10.2) mg/dL Ferritin 26.0 ng/mL Total Bilirubin 0.7 (0.2-1.3) mg/dl AST 28 (14-36) U/L ALT 27 (9-52) U/L Alkaline Phosphatase 67 (38-126) U/L Total Protein 6.9 (6.3-8.2) G/DL Albumin 3.5 (3.5-5.0) g/dL Globulin 3.4 (2.2-3.9) gm/dL Albumin/Globulin Ratio 1.0 (1.0-2.1) Vitamin B12 178 L (239-931) pg/mL Laboratory Results - last 24 hr 02/22/17 04:20 WBC 5.5 RBC 3.27 L Hgb 9.6 L Hct 28.9 L MCV 88.5 MCH 29.4 MCHC 33.2 RDW 15.1 H Plt Count 170 MPV 8.1 Neut % (Auto) 54.5 Lymph % (Auto) 27.3 [place] % (Auto) 6.7 Eos % (Auto) 11.0 H Baso % (Auto) 0.5 Neut # 3.0 Lymph # 1.5 [place] # 0.4 Eos # 0.6 Baso # 0.0 Retic Count 1.4 PT 11.8 H INR 1.13 H Sodium 146 Potassium 4.0 Chloride 106 Carbon Dioxide 29 Anion Gap 15 BUN 12 Creatinine 0.6 L Est GFR ( Amer) > 60 Est GFR (Non-Af Amer) > 60 Random Glucose 110 H Calcium 9.3 Ferritin 26.0 Total Bilirubin 0.7 AST 28 ALT 27 Alkaline Phosphatase 67 Total Protein 6.9 Albumin 3.5 Globulin 3.4 Albumin/Globulin Ratio 1.0 Vitamin B12 178 L Critical Care Progress Note - Nutrition Nutrition: Nutrition Category Date Time Status Regular Diet [DIET] Diets 02/19/17 Dinner Active Assessment/Plan - Assessment and Plan (Free Text) Assessment: A/P Lower GI bleeding, anemia, coagulopathy, pulmonary fibrosis, HTN, h/o PE/DVT - Continue meds - GI follow up - Follow up CBC - Transfusion as needed
[2017-02-22 17:50] LABS: FOLATE 10.4 ng/mL
--- NOTE | 2017-02-22 23:07 | CP.PCM.PN ---
Subjective - Date & Time of Evaluation Date of Evaluation: 02/22/17 Time of Evaluation: 22:22 - Subjective Subjective: Still with black stools?? H/H stable Objective - Vital Signs/Intake and Output Vital Signs (last 24 hours): Temp Pulse Resp BP Pulse Ox 98.1 F 84 19 150/98 H 97 02/22/17 20:00 02/22/17 20:00 02/22/17 20:00 02/22/17 20:00 02/22/17 20:00 Intake and Output: 02/22/17 02/23/17 18:59 06:59 Intake Total 1060 80 Output Total 1650 200 Balance -590 -120 - Medications Medications: Current Medications Atenolol (Tenormin) 25 mg PO DAILY [facility] Last Admin: 02/22/17 09:22 Dose: 25 mg Cyanocobalamin (Vitamin B12 1000 Mcg/Ml Inj) 1,000 mcg IM DAILY [facility] Stop: 02/28/17 09:01 Last Admin: 02/22/17 14:48 Dose: 1,000 mcg Iron Sucrose 200 mg/ Sodium (Chloride) 110 mls @ 110 mls/hr IVPB DAILY [facility] Stop: 02/27/17 11:31 Last Admin: 02/22/17 14:48 Dose: 110 mls/hr Levothyroxine Sodium (Synthroid) 100 mcg PO DAILY@0630 [facility] Last Admin: 02/22/17 05:51 Dose: 100 mcg Pantoprazole Sodium (Protonix Inj) 40 mg IVP DAILY [facility] Last Admin: 02/22/17 09:22 Dose: 40 mg Valsartan (Diovan) 160 mg PO DAILY [facility] Last Admin: 02/22/17 09:22 Dose: 160 mg - Labs Labs: 02/22/17 04:20 02/22/17 04:20 PT 11.8 SECONDS (9.6-11.2) H 02/22/17 04:20 INR 1.13 (0.92-1.08) H 02/22/17 04:20 APTT 27.8 SECONDS (23.3-32.5) D 02/21/17 05:53 - Respiratory Exam Respiratory Exam: NORMAL BREATHING PATTERN - Cardiovascular Exam Cardiovascular Exam: REGULAR RHYTHM - GI/Abdominal Exam GI & Abdominal Exam: Normal Bowel Sounds Assessment and Plan - Assessment and Plan (Free Text) Assessment: LGI bleed BRBPR etiol? Hx of PTE/DVT coumadin therapy s/p Endoscopy and colonoscopy 2 weeks ago Polyp removed?? transfused FFP + 2 units RBC monitor H&H INR 1.13 GI Hematology Hx PTE/DVT Chronic cough Pulnonary consult HTN GERD S/P cholecystectomy Vit B12 deficiency
--- NOTE | 2017-02-23 00:26 | CP.PCM.PN ---
Subjective - Date & Time of Evaluation Date of Evaluation: 02/22/17 Time of Evaluation: 16:00 - Subjective Subjective: No complaints Objective - Vital Signs/Intake and Output Vital Signs (last 24 hours): Temp Pulse Resp BP Pulse Ox 98.1 F 84 19 150/98 H 97 02/22/17 20:00 02/22/17 20:00 02/22/17 20:00 02/22/17 20:00 02/22/17 20:00 Intake and Output: 02/22/17 02/23/17 18:59 06:59 Intake Total 1060 80 Output Total 1650 200 Balance -590 -120 - Medications Medications: Current Medications Atenolol (Tenormin) 25 mg PO DAILY [facility] Last Admin: 02/22/17 09:22 Dose: 25 mg Cyanocobalamin (Vitamin B12 1000 Mcg/Ml Inj) 1,000 mcg IM DAILY [facility] Stop: 02/28/17 09:01 Last Admin: 02/22/17 14:48 Dose: 1,000 mcg Iron Sucrose 200 mg/ Sodium (Chloride) 110 mls @ 110 mls/hr IVPB DAILY [facility] Stop: 02/27/17 11:31 Last Admin: 02/22/17 14:48 Dose: 110 mls/hr Levothyroxine Sodium (Synthroid) 100 mcg PO DAILY@0630 [facility] Last Admin: 02/22/17 05:51 Dose: 100 mcg Pantoprazole Sodium (Protonix Inj) 40 mg IVP DAILY [facility] Last Admin: 02/22/17 09:22 Dose: 40 mg Valsartan (Diovan) 160 mg PO DAILY [facility] Last Admin: 02/22/17 09:22 Dose: 160 mg - Labs Labs: 02/22/17 04:20 02/22/17 04:20 PT 11.8 SECONDS (9.6-11.2) H 02/22/17 04:20 INR 1.13 (0.92-1.08) H 02/22/17 04:20 APTT 27.8 SECONDS (23.3-32.5) D 02/21/17 05:53 - Head Exam Head Exam: ATRAUMATIC - Eye Exam Eye Exam: Normal appearance - ENT Exam ENT Exam: Mucous Membranes Dry - Respiratory Exam Respiratory Exam: NORMAL BREATHING PATTERN - Cardiovascular Exam Cardiovascular Exam: +S1, +S2 - GI/Abdominal Exam GI & Abdominal Exam: Normal Bowel Sounds - Extremities Exam Extremities Exam: Normal Inspection Assessment and Plan (1) Anemia Assessment & Plan: iron deficiency; started Venofer today b12 deficiency; start on B12 IM s/p transfusion support GI blood loss H/H stable Status: Acute (2) History of pulmonary embolism Assessment & Plan: 1st event appears to have been provoked by orthopedic surgery and the pt underwent IVC filter placement and was started on coumadin 2nd about 10 years later was unprovoked and occurred while on coumadin and with an IVC filter in place; unclear if clot originated above/on filter agree with holding anticoagulation given GI bleeding future anticoagulation will depend on cause of bleeding and risks/benefits of further anticoagulation will order abdominal ultrasound to evaluate IVC filter further Status: Acute
[2017-02-23 05:14] LABS: HEMATOCRIT 29.5 % (34.0-47.0); MEAN CELL VOLUME 88.8 fl (81.0-99.0); MEAN CORPUSCULAR HEMOGLOBIN 29.6 pg (27.0-31.0); MEAN CORPUSCULAR HGB CONC 33.3 g/dL (33.0-37.0); RED CELL DISTRIBUTION WIDTH 14.8 % (11.5-14.5); WHITE BLOOD COUNT 6.5 K/uL (4.8-10.8)
[2017-02-23 05:28] LABS: ALKALINE PHOSPHATASE 65 U/L (38-126); ALT/SGPT 24 U/L (9-52); AST/SGOT 30 U/L (14-36); BILIRUBIN,TOTAL 0.9 mg/dl (0.2-1.3); BLOOD UREA NITROGEN 17 mg/dl (7-17); CALCIUM 9.2 mg/dL (8.4-10.2); CARBON DIOXIDE 28 mmol/L (22-30); CHLORIDE 104 mmol/L (98-107); GFR AFRICAN-AMERICAN > 60; GLUCOSE,RANDOM 98 mg/dL (65-105); POTASSIUM 3.8 MMOL/L (3.6-5.0); SODIUM 145 mmol/l (132-148); TOTAL PROTEIN 6.9 G/DL (6.3-8.2)
[2017-02-23] MEDS: Levothyroxine 100 MCG TAB PO SCH ×2 (06:11→06:12)
--- NOTE | 2017-02-23 08:55 | CP.PCM.CON ---
History of Present Illness - History of Present Illness History of Present Illness: This 76 year old female was admitted via the emergency room because of lower GI bleeding while taking warfarin for a history of prior pulmonary embolism. She had had and initial provoked PE after orthopedic surgery, but developed a second unprovoked PE at a later date while still taking warfarin. She has been followed by her PMD, Mark Becerra MD, and has been monitored closely with weekly labs subsequently. She does admit to a chronic cough which is productive at times, but denies a history of Asthma. There was an episode of pneumonia treated as an outpatient by her PMD in 2016. She does admit to some dyspnea on exertion, and her CT abdomen does reveal some chronic appearing ILD with traction bronchiectasis in the lung bases. Since admission her active bleeding appears to have stopped after receiving FFP and PRBC's to correct her anemia. She is unaware of any genetic predisposed hypercoagulable state. Past Patient History - Infectious Disease Hx of Infectious Diseases: None - Past Medical History & Family History Past Medical History?: Yes - Past Social History Smoking Status: Never Smoked Chewing Tobacco Use: No Cigar Use: No Alcohol: None Drugs: Denies Home Situation {Lives}: With Family - CARDIAC Hx Hypertension: Yes - PULMONARY Hx Pneumonia: Yes Hx Pulmonary Embolism: Yes - NEUROLOGICAL Hx Neurological Disorder: No - HEENT Hx HEENT Problems: No Other/Comment: reading glasses - RENAL Hx Chronic Kidney Disease: No Other/Comment: cysitis - ENDOCRINE/METABOLIC Hx Hypothyroidism: Yes - HEMATOLOGICAL/ONCOLOGICAL Hx Blood Disorders: No Hx Human Immunodeficiency Virus (HIV): No - INTEGUMENTARY Hx Dermatological Problems: No - MUSCULOSKELETAL/RHEUMATOLOGICAL Hx Arthritis: Yes (knees) Hx Falls: No - GASTROINTESTINAL Hx Gastritis: Yes Other/Comment: endoscopy, colonoscopy, cholecytectomy - GENITOURINARY/GYNECOLOGICAL Hx Genitourinary Disorders: No - PSYCHIATRIC Hx Anxiety: No Hx Depression: Yes Hx Substance Use: No - SURGICAL HISTORY Hx Surgeries: Yes Hx Cholecystectomy: Yes Hx Orthopedic Surgery: Yes (knee replacement) Other/Comment: IVC filter - ANESTHESIA Hx Anesthesia: Yes Hx Anesthesia Reactions: No Hx Malignant Hyperthermia: No Meds Allergies/Adverse Reactions: Allergies Allergy/AdvReac Type Severity Reaction Status Date / Time No Known Allergies Allergy Verified 12/17/15 15:54 - Medications Medications: Current Medications Atenolol (Tenormin) 25 mg PO DAILY [facility] Last Admin: 02/22/17 09:22 Dose: 25 mg Cyanocobalamin (Vitamin B12 1000 Mcg/Ml Inj) 1,000 mcg IM DAILY [facility] Stop: 02/28/17 09:01 Last Admin: 02/22/17 14:48 Dose: 1,000 mcg Iron Sucrose 200 mg/ Sodium (Chloride) 110 mls @ 110 mls/hr IVPB DAILY [facility] Stop: 02/27/17 11:31 Last Admin: 02/22/17 14:48 Dose: 110 mls/hr Levothyroxine Sodium (Synthroid) 100 mcg PO DAILY@0630 [facility] Last Admin: 02/23/17 06:12 Dose: Not Given Pantoprazole Sodium (Protonix Inj) 40 mg IVP DAILY [facility] Last Admin: 02/22/17 09:22 Dose: 40 mg Valsartan (Diovan) 160 mg PO DAILY [facility] Last Admin: 02/22/17 09:22 Dose: 160 mg Physical Exam - Additional Findings Additional findings: Well nourished, well developed, comfortable at rest. Prominent venous pattern of both LE's. No calf tenderness, no dependant edema. Pulses in LE's palpable bilaterally, slightly less prominent on the left. No cyanosis. No palpable lymphadenopathy. Pharynx pink and moist w/o exudate. Nares patent bilaterally w/o bleeding. Neck supple and trachea midline, no visible JVD. No carotid bruit or thyromegaly appreciated. No dullness on chest percussion, equal expansion. Breath sounds are well heard bilaterally, dry to medium rales are present in the lower lobes bilatyerally. No bronchial breath sounds or egophony. Heart sounds are slightly distant, rhythm seems regular, faint systolic murmur at base. Results - Vital Signs Recent Vital Signs: Last Vital Signs Temp 98.6 F 02/23/17 08:00 Pulse 75 02/23/17 08:00 Resp 25 H 02/23/17 08:00 BP 140/64 02/23/17 08:00 Pulse Ox 98 02/23/17 08:00 - Labs Result Diagrams: 02/23/17 04:20 02/23/17 04:20 Labs: Laboratory Results - last 24 hr 02/22/17 02/23/17 04:20 04:20 WBC 6.5 RBC 3.32 L Hgb 9.8 L Hct 29.5 L MCV 88.8 MCH 29.6 MCHC 33.3 RDW 14.8 H Plt Count 194 PT 11.5 H INR 1.11 H Sodium 145 Potassium 3.8 Chloride 104 Carbon Dioxide 28 Anion Gap 16 BUN 17 Creatinine 0.6 L Est GFR ( Amer) > 60 Est GFR (Non-Af Amer) > 60 Random Glucose 98 Calcium 9.2 Total Bilirubin 0.9 AST 30 ALT 24 Alkaline Phosphatase 65 Total Protein 6.9 Albumin 3.5 Globulin 3.4 Albumin/Globulin Ratio 1.0 Folate 10.4 Assessment & Plan (1) Rectal bleed Status: Acute Priority: High (2) Anemia Status: Acute Priority: High (3) History of pulmonary embolism Status: Inactive Priority: Medium (4) ILD (interstitial lung disease) Assessment and Plan: 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 Status: Chronic Priority: Medium - Assessment and Plan (Free Text) Plan: Would manage current GI bleeding as indicated and refer back to her PMD for continued followup. Has been on mechanical drafter anticoagulation since having her PE's and also has an IVC filter in situ. Would not initiate any workup at this time pertaining to coagulopathy as this likely has been done in the past. Re-initiate anticoagulation if/when cleared by GI. - Date & Time Date: 02/23/17 Time: 08:50
[2017-02-23] MEDS ORDERED: Heparin Sodium (Porcine) 1,000 U/ML 30ML IV ONE ×3 (09:31)
--- NOTE | 2017-02-23 10:35 | US ---
HISTORY: evaluation of IVC filter COMPARISON: None available TECHNIQUE: Sonographic evaluation of the abdomen. FINDINGS: LIVER: Measures 15.8 cm in sagittal dimension and appears within normal limits of size, shape, and echotexture. No focal hepatic mass identified. The main portal vein appears patent with normal directional flow. No intrahepatic bile duct dilatation. GALLBLADDER: Cholecystectomy. COMMON BILE DUCT: Measures 8 mm. PANCREAS: Not well visualized. RIGHT KIDNEY: Measures 9.4 x 5.0 x 3.9cm. No renal cyst, obstructing calculus, or hydronephrosis identified. LEFT KIDNEY: Measures 10.2 x 5.6 x 4.3cm. No renal cyst, obstructing calculus, or hydronephrosis identified. SPLEEN: Measures approximately 12.3 cm. AORTA: Limited views appear unremarkable. IVC: Limited views appear unremarkable. OTHER FINDINGS: None. IMPRESSION: IVC filter is not demonstrated on the submitted images. CT may be considered for further assessment. Cholecystectomy. Minimally dilated common bile duct, likely within range given patient's age and cholecystectomy state.
[2017-02-23] MEDS ORDERED: Heparin 25,000units in D5W 250 ML IV SCH ×2 (11:45→17:00)
--- NOTE | 2017-02-23 12:23 | CP.PCM.PN ---
Subjective - Date & Time of Evaluation Date of Evaluation: 02/23/17 Time of Evaluation: 12:20 - Subjective Subjective: no bleeding, hgb stable Objective - Vital Signs/Intake and Output Vital Signs (last 24 hours): Temp Pulse Resp BP Pulse Ox 98.3 F 84 25 H 130/60 98 02/23/17 12:00 02/23/17 12:00 02/23/17 12:00 02/23/17 12:00 02/23/17 12:00 Intake and Output: 02/23/17 02/23/17 06:59 18:59 Intake Total 450 Output Total 650 Balance -200 - Medications Medications: Current Medications Atenolol (Tenormin) 25 mg PO DAILY [facility] Last Admin: 02/23/17 09:52 Dose: 25 mg Cyanocobalamin (Vitamin B12 1000 Mcg/Ml Inj) 1,000 mcg IM DAILY [facility] Stop: 02/28/17 09:01 Last Admin: 02/23/17 09:52 Dose: 1,000 mcg Iron Sucrose 200 mg/ Sodium (Chloride) 110 mls @ 110 mls/hr IVPB DAILY [facility] Stop: 02/27/17 11:31 Last Admin: 02/23/17 11:01 Dose: 110 mls/hr Heparin Sodium/Dextrose (Heparin 25,000 Units/250ml In D5w) 250 mls @ 6 mls/hr IV .Q24H [facility] PRN Reason: Protocol Last Admin: 02/23/17 11:48 Dose: 6 mls/hr Levothyroxine Sodium (Synthroid) 100 mcg PO DAILY@0630 [facility] Last Admin: 02/23/17 06:12 Dose: Not Given Pantoprazole Sodium (Protonix Inj) 40 mg IVP DAILY [facility] Last Admin: 02/23/17 09:51 Dose: 40 mg Valsartan (Diovan) 160 mg PO DAILY [facility] Last Admin: 02/23/17 09:51 Dose: 160 mg - Labs Labs: 02/23/17 04:20 02/23/17 04:20 PT 11.5 SECONDS (9.6-11.2) H 02/23/17 04:20 INR 1.11 (0.92-1.08) H 02/23/17 04:20 APTT 27.8 SECONDS (23.3-32.5) D 02/21/17 05:53 - Cardiovascular Exam Cardiovascular Exam: REGULAR RHYTHM - GI/Abdominal Exam GI & Abdominal Exam: Soft, Normal Bowel Sounds Assessment and Plan - Assessment and Plan (Free Text) Assessment: 76 yo female with anemia no bleeding dc planning when able
--- NOTE | 2017-02-23 13:39 | CP.CCUPN ---
CCU Subjective - Physician Review Events Since Last Encounter (Free Text): 02/23/17 13:37 No further bleeding for several days, patient clinically stable. CCU Objective - Vital Signs / Intake & Output Vital Signs (Last 4 hours): Vital Signs Temp Pulse Resp BP Pulse Ox 02/23/17 12:00 98.3 F 84 25 H 130/60 98 02/23/17 10:00 86 20 140/67 99 02/23/17 09:52 89 158/97 H Intake and Output (Last 8hrs): Intake & Output 02/22/17 02/23/17 02/23/17 22:59 06:59 14:59 Intake Total 520 250 Output Total 1400 250 Balance -880 0 Intake: IV 0 Intake, Piggyback 100 Oral 420 250 Output: Urine 1400 250 Urine, Voided 1400 250 Other: # Voids Urine, Voided 1 - Physical Exam Head: Positive for: Atraumatic, Normocephalic Pupils: Positive for: PERRL Conjunctiva: Positive for: Normal Mouth: Positive for: Moist Mucous Membranes Nose (External): Positive for: Atraumatic Neck: Positive for: Normal Range of Motion Respiratory/Chest: Positive for: Clear to Auscultation Cardiovascular: Positive for: Regular Rate and Rhythm Abdomen: Positive for: Normal Bowel Sounds Upper Extremity: Positive for: Normal Inspection Lower Extremity: Positive for: Normal Inspection Neurological: Positive for: Speech Normal Skin: Positive for: Warm Psychiatric: Positive for: Alert, Oriented x 3 - Medications Active Medications: Active Medications Generic Name Dose Route Start Last Admin Trade Name Freq PRN Reason Stop Dose Admin Atenolol 25 mg 02/20/17 09:00 02/23/17 09:52 Tenormin PO 25 mg DAILY [facility] Administration Cyanocobalamin 1,000 mcg 02/22/17 11:30 02/23/17 09:52 Vitamin B12 1000 Mcg/Ml Inj IM 02/28/17 09:01 1,000 mcg DAILY [facility] Administration Iron Sucrose 200 mg/ Sodium 110 mls @ 110 mls/hr 02/22/17 11:30 02/23/17 11:01 Chloride IVPB 02/27/17 11:31 110 mls/hr DAILY [facility] Administration Heparin Sodium/Dextrose 250 mls @ 6 mls/hr 02/23/17 11:45 02/23/17 11:48 Heparin 25,000 Units/250ml In D5w IV 6 mls/hr .Q24H [facility] Administration Protocol Levothyroxine Sodium 100 mcg 02/20/17 06:30 02/23/17 06:12 Synthroid PO Not Given DAILY@0630 [facility] Pantoprazole Sodium 40 mg 02/20/17 09:00 02/23/17 09:51 Protonix Inj IVP 40 mg DAILY [facility] Administration Valsartan 160 mg 02/20/17 09:00 02/23/17 09:51 Diovan PO 160 mg DAILY [facility] Administration - Patient Studies Lab Studies: Lab Studies 02/23/17 02/23/17 02/22/17 Range/Units 11:45 04:20 04:20 WBC 6.5 (4.8-10.8) K/uL RBC 3.32 L (3.80-5.20) Mil/uL Hgb 9.8 L (12.0-16.0) g/dL Hct 29.5 L (34.0-47.0) % MCV 88.8 (81.0-99.0) fl MCH 29.6 (27.0-31.0) pg MCHC 33.3 (33.0-37.0) g/dL RDW 14.8 H (11.5-14.5) % Plt Count 194 (130-400) K/uL PT 11.5 H (9.6-11.2) SECONDS INR 1.11 H (0.92-1.08) APTT 29.6 (23.3-32.5) SECONDS Sodium 145 (132-148) mmol/l Potassium 3.8 (3.6-5.0) MMOL/L Chloride 104 (98-107) mmol/L Carbon Dioxide 28 (22-30) mmol/L Anion Gap 16 (10-20) BUN 17 (7-17) mg/dl Creatinine 0.6 L (0.7-1.2) mg/dL Est GFR ( Amer) > 60 Est GFR (Non-Af Amer) > 60 Random Glucose 98 (65-105) mg/dL Calcium 9.2 (8.4-10.2) mg/dL Total Bilirubin 0.9 (0.2-1.3) mg/dl AST 30 (14-36) U/L ALT 24 (9-52) U/L Alkaline Phosphatase 65 (38-126) U/L Total Protein 6.9 (6.3-8.2) G/DL Albumin 3.5 (3.5-5.0) g/dL Globulin 3.4 (2.2-3.9) gm/dL Albumin/Globulin Ratio 1.0 (1.0-2.1) Folate 10.4 ng/mL Laboratory Results - last 24 hr 02/22/17 02/23/17 02/23/17 04:20 04:20 11:45 WBC 6.5 RBC 3.32 L Hgb 9.8 L Hct 29.5 L MCV 88.8 MCH 29.6 MCHC 33.3 RDW 14.8 H Plt Count 194 PT 11.5 H INR 1.11 H APTT 29.6 Sodium 145 Potassium 3.8 Chloride 104 Carbon Dioxide 28 Anion Gap 16 BUN 17 Creatinine 0.6 L Est GFR ( Amer) > 60 Est GFR (Non-Af Amer) > 60 Random Glucose 98 Calcium 9.2 Total Bilirubin 0.9 AST 30 ALT 24 Alkaline Phosphatase 65 Total Protein 6.9 Albumin 3.5 Globulin 3.4 Albumin/Globulin Ratio 1.0 Folate 10.4 Review of Systems - Review of Systems All systems: reviewed and no additional remarkable complaints except Critical Care Progress Note - Nutrition Nutrition: Nutrition Category Date Time Status Heart Healthy Diet [DIET] Diets 02/22/17 Dinner Active Assessment/Plan (1) GI bleed Assessment and plan: 76-year-old female with past medical history of knee replacement, 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 Presents with lower GI bleed. 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 No acute issues. CV: Hemodynamically stable Hem: No further bleeding. Will rechallenge patient with heparin drip, no boluses. Patient will still require long-term anticoagulation with Coumadin. Renal: No acute issues Endo: Hypothyroidism continue levothyroxine. GI: Heart healthy diet ID: No acute issues. DVT proph - heparin drip GI proph - Protonix leblanc for strict I/O's during acute illness Code status - full code Crtical Care Time spent 35 minutes Multi-disciplinary rounds were performed with house staff, nursing, speech therapy, respiratory therapy, pharmacy and nutrition with integrated input from the primary team/attending and other consulting services. The documented time is cumulative and includes review of patient data/exams/labs/chart review and examination of the patient on rounds and throughout the day; time is exclusive of any procedures or teaching time. Current Visit: Yes Status: Acute
--- NOTE | 2017-02-23 20:36 | CP.PCM.PN ---
Subjective - Date & Time of Evaluation Date of Evaluation: 02/23/17 Time of Evaluation: 22:22 - Subjective Subjective: Above noted Objective - Vital Signs/Intake and Output Vital Signs (last 24 hours): Temp Pulse Resp BP Pulse Ox 98.1 F 91 H 14 130/76 98 02/23/17 19:36 02/23/17 19:36 02/23/17 19:36 02/23/17 19:36 02/23/17 19:36 Intake and Output: 02/23/17 02/24/17 18:59 06:59 Intake Total 63 Balance 63 - Medications Medications: Current Medications Atenolol (Tenormin) 25 mg PO DAILY [facility] Last Admin: 02/23/17 09:52 Dose: 25 mg Cyanocobalamin (Vitamin B12 1000 Mcg/Ml Inj) 1,000 mcg IM DAILY [facility] Stop: 02/28/17 09:01 Last Admin: 02/23/17 09:52 Dose: 1,000 mcg Iron Sucrose 200 mg/ Sodium (Chloride) 110 mls @ 110 mls/hr IVPB DAILY [facility] Stop: 02/27/17 11:31 Last Admin: 02/23/17 11:01 Dose: 110 mls/hr Heparin Sodium/Dextrose (Heparin 25,000 Units/250ml In D5w) 250 mls @ 12 mls/ hr IV .[id number] [facility] PRN Reason: Protocol Last Admin: 02/23/17 17:18 Dose: 12 mls/hr Levothyroxine Sodium (Synthroid) 100 mcg PO DAILY@0630 [facility] Last Admin: 02/23/17 06:12 Dose: Not Given Pantoprazole Sodium (Protonix Inj) 40 mg IVP DAILY [facility] Last Admin: 02/23/17 09:51 Dose: 40 mg Valsartan (Diovan) 160 mg PO DAILY [facility] Last Admin: 02/23/17 09:51 Dose: 160 mg - Labs Labs: 02/23/17 04:20 02/23/17 04:20 PT 11.5 SECONDS (9.6-11.2) H 02/23/17 04:20 INR 1.11 (0.92-1.08) H 02/23/17 04:20 APTT 41.3 SECONDS (23.3-32.5) H 02/23/17 18:20 - Respiratory Exam Respiratory Exam: NORMAL BREATHING PATTERN - Cardiovascular Exam Cardiovascular Exam: REGULAR RHYTHM - GI/Abdominal Exam GI & Abdominal Exam: Normal Bowel Sounds Assessment and Plan - Assessment and Plan (Free Text) Assessment: LGI bleed BRBPR etiol? Hx of PTE/DVT coumadin therapy s/p Endoscopy and colonoscopy 2 weeks ago Polyp removed?? transfused FFP + 2 units RBC monitor H&H INR 1.13 GI Hematology Hx PTE/DVT Chronic cough ? Bronchiectasis Pulnonary consult appreciated HTN GERD S/P cholecystectomy Vit B12 deficiency
[2017-02-24 06:22] LABS: HEMATOCRIT 30.1 % (34.0-47.0); MEAN CELL VOLUME 89.6 fl (81.0-99.0); MEAN CORPUSCULAR HGB CONC 33.4 g/dL (33.0-37.0); RED CELL DISTRIBUTION WIDTH 14.8 % (11.5-14.5); WHITE BLOOD COUNT 7.4 K/uL (4.8-10.8)
[2017-02-24 08:30] LABS: BLOOD UREA NITROGEN 13 mg/dl (7-17); CALCIUM 9.2 mg/dL (8.4-10.2); CARBON DIOXIDE 28 mmol/L (22-30); CHLORIDE 105 mmol/L (98-107); GFR AFRICAN-AMERICAN > 60; GLUCOSE,RANDOM 102 mg/dL (65-105); POTASSIUM 4.2 MMOL/L (3.6-5.0); SODIUM 145 mmol/l (132-148)
[2017-02-24] MEDS: Levothyroxine 100 MCG TAB PO SCH (08:46)
--- NOTE | 2017-02-24 09:14 | CP.PCM.PN ---
Subjective - Date & Time of Evaluation Date of Evaluation: 02/24/17 Time of Evaluation: 09:09 - Subjective Subjective: Seen on morning rounds in the ICU. Started back on heparin drip yesterday w/o any recurrence of her GI bleed thus far. Has not had another BM since resuming this rx. No complaints of SOB. Occasional cough at baseline. On exam dry to medium rales are heard in both lower lobes posteriorly w/o wheeze or bronchial breathing. Continue close monitoring as anticoagulation has been re-initiated. Objective - Vital Signs/Intake and Output Vital Signs (last 24 hours): Temp Pulse Resp BP Pulse Ox 97.8 F 78 16 93/55 L 100 02/24/17 08:00 02/24/17 08:00 02/24/17 08:00 02/24/17 08:00 02/24/17 08:00 Intake and Output: 02/23/17 02/24/17 23:59 11:59 Intake Total 63 402 Balance 63 402 - Medications Medications: Current Medications Atenolol (Tenormin) 25 mg PO DAILY [facility] Last Admin: 02/24/17 08:46 Dose: 25 mg Cyanocobalamin (Vitamin B12 1000 Mcg/Ml Inj) 1,000 mcg IM DAILY [facility] Stop: 02/28/17 09:01 Last Admin: 02/24/17 08:47 Dose: 1,000 mcg Iron Sucrose 200 mg/ Sodium (Chloride) 110 mls @ 110 mls/hr IVPB DAILY [facility] Stop: 02/27/17 11:31 Last Admin: 02/23/17 11:01 Dose: 110 mls/hr Heparin Sodium/Dextrose (Heparin 25,000 Units/250ml In D5w) 250 mls @ 12 mls/ hr IV .[id number] [facility] PRN Reason: Protocol Last Titration: 02/24/17 01:00 Dose: 12 mls/hr Levothyroxine Sodium (Synthroid) 100 mcg PO DAILY@0630 [facility] Last Admin: 02/24/17 08:46 Dose: 100 mcg Pantoprazole Sodium (Protonix Inj) 40 mg IVP DAILY [facility] Last Admin: 02/24/17 08:47 Dose: 40 mg Valsartan (Diovan) 160 mg PO DAILY [facility] Last Admin: 02/24/17 08:46 Dose: 160 mg - Labs Labs: 02/24/17 05:30 02/24/17 05:30 PT 11.5 SECONDS (9.6-11.2) H 02/23/17 04:20 INR 1.11 (0.92-1.08) H 02/23/17 04:20 APTT 74.5 SECONDS (23.3-32.5) H* D 02/24/17 05:30 Assessment and Plan (1) Rectal bleed Status: Acute (2) Anemia Status: Acute (3) History of pulmonary embolism Status: Inactive (4) ILD (interstitial lung disease) Status: Chronic
--- NOTE | 2017-02-24 09:22 | PQF GENQUE ---
Dr. Arguello,, Etiology of GI Bleeding?; if known after work up completed OR: document unable to determine OR: other explanation of clinical findings -Attending progress note:: LGI bleed BRBPR etiol?; Hx of PTE/DVT coumadin therapy; s/p Endoscopy and colonoscopy 2 weeks ago Polyp removed??; transfused FFP + 2 units RBC ;monitor H H; INR 1.13 -GI consult: with BRbPR Ct noted hgb stable once INR corrected no active bleeding -Hematology note: (1) Anemia ;iron deficiency; started Venofer today B12 deficiency; start on B12 IM s/p transfusion support GI blood loss H/H stable Status: Acute (2) Hx. of PE: 1st event appears to have been provoked by orthopedic surgery and the pt underwent IVC filter placement and was started on coumadin 2nd about 10 years later was unprovoked and occurred while on coumadin and with an IVC filter in place; unclear if clot originated above/on filter agree with holding anticoagulation given GI bleeding future anticoagulation will depend on cause of bleeding and risks/benefits of further anticoagulation will order abdominal ultrasound to evaluate IVC filter further Status: Acute This form is a permanent part of the medical record Clarification of your documentation is requested to better reflect the severity of illness and intensity of treatment of your patient. Indicators present [] Specify: [] [] Specify: [] [] Specify: [] [] Specify: [] Location in the medical record that reflects the above clinical findings: [] Treatment Provided: [] PHYSICIAN'S RESPONSE Based on your medical judgment of the clinical indicators outlined above please clarify the following: [] Practitioner response [] If unable to determine, please check the box, sign and date. Present On Admission (POA) Indicator: [] Present at the time of admission [] Not present at the time of admission [] Clinically Undetermined In responding to this query, please exercise your independent professional judgment. The fact that a question is asked does not imply that any particular answer is desired or expected. Thank you for your clarification on this documentation. If you have any questions please call. * Thank you, Isabell Amaya RN BSN ext. #[phone] MTDD
[2017-02-24] MEDS ORDERED: Heparin25000 units/250ml 1/2NS 25,000 UNITS/250 ML BAG IV ONE (11:30)
[2017-02-24] MEDS ORDERED: Heparin25000 units/250ml 1/2NS 25,000 UNITS/250 ML BAG IV SCH ×2 (11:44→12:00)
--- NOTE | 2017-02-24 20:15 | CP.PCM.PN ---
Subjective - Date & Time of Evaluation Date of Evaluation: 02/24/17 Time of Evaluation: 22:22 - Subjective Subjective: No GI bleeding on Heparin Objective - Vital Signs/Intake and Output Vital Signs (last 24 hours): Temp Pulse Resp BP Pulse Ox 98.2 F 78 18 119/60 98 02/24/17 11:55 02/24/17 11:55 02/24/17 11:55 02/24/17 11:55 02/24/17 11:55 Intake and Output: 02/24/17 02/25/17 18:59 06:59 Intake Total 142 Balance 142 - Medications Medications: Current Medications Atenolol (Tenormin) 25 mg PO DAILY [facility] Last Admin: 02/24/17 08:46 Dose: 25 mg Cyanocobalamin (Vitamin B12 1000 Mcg/Ml Inj) 1,000 mcg IM DAILY [facility] Stop: 02/28/17 09:01 Last Admin: 02/24/17 08:47 Dose: 1,000 mcg Iron Sucrose 200 mg/ Sodium (Chloride) 110 mls @ 110 mls/hr IVPB DAILY [facility] Stop: 02/27/17 11:31 Last Admin: 02/24/17 11:36 Dose: 110 mls/hr Heparin Sodium/Sodium Chloride (Heparin 85592 Units/250ml 1/2 Normal Saline) 25 ,000 units in 250 mls @ 9.5 mls/hr IV .Q24H [facility] PRN Reason: Protocol Levothyroxine Sodium (Synthroid) 100 mcg PO DAILY@0630 [facility] Last Admin: 02/24/17 08:46 Dose: 100 mcg Pantoprazole Sodium (Protonix Inj) 40 mg IVP DAILY [facility] Last Admin: 02/24/17 08:47 Dose: 40 mg Valsartan (Diovan) 160 mg PO DAILY [facility] Last Admin: 02/24/17 08:46 Dose: 160 mg Warfarin Sodium (Coumadin) 5 mg PO QD5 [facility] PRN Reason: Protocol Stop: 02/24/17 18:28 - Labs Labs: 02/24/17 05:30 02/24/17 05:30 PT 11.5 SECONDS (9.6-11.2) H 02/23/17 04:20 INR 1.11 (0.92-1.08) H 02/23/17 04:20 APTT 97.6 SECONDS (23.3-32.5) H* D 02/24/17 16:00 - Respiratory Exam Respiratory Exam: NORMAL BREATHING PATTERN - Cardiovascular Exam Cardiovascular Exam: REGULAR RHYTHM - GI/Abdominal Exam GI & Abdominal Exam: Normal Bowel Sounds Assessment and Plan - Assessment and Plan (Free Text) Assessment: LGI bleed BRBPR etiol? Hx of PTE/DVT coumadin therapy s/p Endoscopy and colonoscopy 2 weeks ago Polyp removed?? transfused FFP + 2 units RBC monitor H&H No GI bleeding Heparin restart coumadin Hx PTE/DVT Chronic cough ? Bronchiectasis Pulnonary consult appreciated HTN GERD S/P cholecystectomy Vit B12 deficiency
[2017-02-25] MEDS: Heparin 25,000units in D5W 25,000 UNITS/250 ML BAG IV SCH ×2 (02:08→21:50)
--- NOTE | 2017-02-25 03:25 | CP.PCM.PN ---
Subjective - Date & Time of Evaluation Date of Evaluation: 02/24/17 Time of Evaluation: 11:00 - Subjective Subjective: No complaints On heparin drip, no bleeding. Objective - Vital Signs/Intake and Output Vital Signs (last 24 hours): Temp Pulse Resp BP Pulse Ox 98.4 F 74 18 116/52 L 99 02/25/17 00:00 02/25/17 02:00 02/25/17 02:00 02/25/17 02:00 02/25/17 02:00 Intake and Output: 02/24/17 02/25/17 18:59 06:59 Intake Total 142 442 Balance 142 442 - Medications Medications: Current Medications Atenolol (Tenormin) 25 mg PO DAILY [facility] Last Admin: 02/24/17 08:46 Dose: 25 mg Cyanocobalamin (Vitamin B12 1000 Mcg/Ml Inj) 1,000 mcg IM DAILY [facility] Stop: 02/28/17 09:01 Last Admin: 02/24/17 08:47 Dose: 1,000 mcg Iron Sucrose 200 mg/ Sodium (Chloride) 110 mls @ 110 mls/hr IVPB DAILY [facility] Stop: 02/27/17 11:31 Last Admin: 02/24/17 11:36 Dose: 110 mls/hr Heparin Sodium/Dextrose (Heparin 25,000 Units/250ml In D5w) 25,000 units in 250 mls @ 8 mls/hr IV .Q24H [facility] PRN Reason: Protocol Last Admin: 02/25/17 02:08 Dose: 8 mls/hr Levothyroxine Sodium (Synthroid) 100 mcg PO DAILY@0630 [facility] Last Admin: 02/24/17 08:46 Dose: 100 mcg Pantoprazole Sodium (Protonix Inj) 40 mg IVP DAILY [facility] Last Admin: 02/24/17 08:47 Dose: 40 mg Valsartan (Diovan) 160 mg PO DAILY [facility] Last Admin: 02/24/17 08:46 Dose: 160 mg - Labs Labs: 02/24/17 05:30 02/24/17 05:30 PT 11.2 SECONDS (9.6-11.2) 02/25/17 11:55 INR 1.08 (0.92-1.08) 02/25/17 11:55 APTT 40.8 SECONDS (23.3-32.5) H 02/25/17 11:55 - Head Exam Head Exam: ATRAUMATIC - Eye Exam Eye Exam: Normal appearance - ENT Exam ENT Exam: Mucous Membranes Dry - Respiratory Exam Respiratory Exam: NORMAL BREATHING PATTERN - Cardiovascular Exam Cardiovascular Exam: +S1, +S2 - GI/Abdominal Exam GI & Abdominal Exam: Normal Bowel Sounds - Extremities Exam Extremities Exam: Normal Inspection Assessment and Plan (1) Anemia Assessment & Plan: b12 and iron deficiency; on replacement H/H improving Status: Acute (2) History of pulmonary embolism Assessment & Plan: on anticoagulation Status: Inactive (3) Coagulopathy Assessment & Plan: secondary to anticoagulation Status: Acute
[2017-02-25] MEDS: Levothyroxine 100 MCG TAB PO SCH (06:30)
[2017-02-25 06:56] LABS: BASO # 0.1 K/uL (0.0-0.2); BASO % 0.8 % (0.0-2.0); EOS # 0.7 K/uL (0.0-0.7); EOS % 10.4 % (0.0-4.0); HEMATOCRIT 29.6 % (34.0-47.0); LYMPH # 1.7 K/uL (1.0-4.3); LYMPH % 26.1 % (20.0-40.0); MEAN CELL VOLUME 90.2 fl (81.0-99.0); MEAN CORPUSCULAR HEMOGLOBIN 30.4 pg (27.0-31.0); MEAN CORPUSCULAR HGB CONC 33.7 g/dL (33.0-37.0); MEAN PLATELET VOLUME 8.3 fl (7.2-11.7); MONO # 0.6 K/uL (0.0-0.8); MONO % 8.6 % (0.0-10.0); NEUT # 3.6 K/uL (1.8-7.0); NEUT % 54.1 % (50.0-75.0); NRBC % 0.1 % (0.0-0.0); RED CELL DISTRIBUTION WIDTH 15.4 % (11.5-14.5); WHITE BLOOD COUNT 6.7 K/uL (4.8-10.8)
[2017-02-25 07:42] LABS: PARTIAL THROMBOPLASTIN TIME 40.8 SECONDS (23.3-32.5)
[2017-02-25 08:45] LABS: CHLORIDE 103 mmol/L (98-107); POTASSIUM 4.3 MMOL/L (3.6-5.0); SODIUM 143 mmol/l (132-148)
[2017-02-25 08:47] LABS: GFR AFRICAN-AMERICAN > 60
[2017-02-25 08:48] LABS: BLOOD UREA NITROGEN 12 mg/dl (7-17); CALCIUM 9.2 mg/dL (8.4-10.2); CARBON DIOXIDE 30 mmol/L (22-30); GLUCOSE,RANDOM 95 mg/dL (65-105)
[2017-02-25 09:05] LABS: PARTIAL THROMBOPLASTIN TIME 66.1 SECONDS (23.3-32.5)
--- NOTE | 2017-02-25 11:10 | CP.PCM.PN ---
Subjective - Date & Time of Evaluation Date of Evaluation: 02/25/17 Time of Evaluation: 11:08 - Subjective Subjective: Sitting in bedside chair. Still has a congested cough (chronic). Anticoagulation ongoing. Had one dose warfarin yesterday. Had normal BM. Feeling fairly well at this time. Objective - Vital Signs/Intake and Output Vital Signs (last 24 hours): Temp Pulse Resp BP Pulse Ox 99 F 96 H 17 138/68 98 02/25/17 08:00 02/25/17 08:00 02/25/17 08:00 02/25/17 08:00 02/25/17 08:00 Intake and Output: 02/24/17 02/25/17 23:59 11:59 Intake Total 366 530 Balance 366 530 - Medications Medications: Current Medications Atenolol (Tenormin) 25 mg PO DAILY [facility] Last Admin: 02/25/17 08:45 Dose: 25 mg Cyanocobalamin (Vitamin B12 1000 Mcg/Ml Inj) 1,000 mcg IM DAILY [facility] Stop: 02/28/17 09:01 Last Admin: 02/25/17 08:45 Dose: 1,000 mcg Home Med (Difluprednate [Durezol]) 1 drop OS BID [facility] Iron Sucrose 200 mg/ Sodium (Chloride) 110 mls @ 110 mls/hr IVPB DAILY [facility] Stop: 02/27/17 11:31 Last Admin: 02/25/17 09:24 Dose: 110 mls/hr Heparin Sodium/Dextrose (Heparin 25,000 Units/250ml In D5w) 25,000 units in 250 mls @ 8 mls/hr IV .Q24H [facility] PRN Reason: Protocol Last Admin: 02/25/17 02:08 Dose: 8 mls/hr Levothyroxine Sodium (Synthroid) 100 mcg PO DAILY@0630 [facility] Last Admin: 02/25/17 06:30 Dose: 100 mcg Pantoprazole Sodium (Protonix Inj) 40 mg IVP DAILY [facility] Last Admin: 02/25/17 08:44 Dose: 40 mg Valsartan (Diovan) 160 mg PO DAILY [facility] Last Admin: 02/25/17 08:45 Dose: 160 mg - Labs Labs: 02/25/17 06:43 02/25/17 08:32 PT 11.1 SECONDS (9.6-11.2) 02/25/17 08:32 INR 1.07 (0.92-1.08) 02/25/17 08:32 APTT 66.1 SECONDS (23.3-32.5) H* D 02/25/17 08:32 Assessment and Plan (1) Rectal bleed Status: Acute (2) Anemia Status: Acute (3) History of pulmonary embolism Status: Inactive (4) ILD (interstitial lung disease) Status: Chronic
--- NOTE | 2017-02-25 19:59 | CP.PCM.PN ---
Subjective - Date & Time of Evaluation Date of Evaluation: 02/25/17 Time of Evaluation: 22:22 - Subjective Subjective: Above noted Objective - Vital Signs/Intake and Output Vital Signs (last 24 hours): Temp Pulse Resp BP Pulse Ox 97.7 F 83 12 131/60 99 02/25/17 17:00 02/25/17 17:00 02/25/17 17:00 02/25/17 17:00 02/25/17 17:00 Intake and Output: 02/25/17 02/26/17 18:59 06:59 Intake Total 772 Balance 772 - Medications Medications: Current Medications Atenolol (Tenormin) 25 mg PO DAILY [facility] Last Admin: 02/25/17 08:45 Dose: 25 mg Cyanocobalamin (Vitamin B12 1000 Mcg/Ml Inj) 1,000 mcg IM DAILY [facility] Stop: 02/28/17 09:01 Last Admin: 02/25/17 08:45 Dose: 1,000 mcg Home Med (Difluprednate [Durezol]) 1 drop OS BID [facility] Last Admin: 02/25/17 11:42 Dose: Not Given Iron Sucrose 200 mg/ Sodium (Chloride) 110 mls @ 110 mls/hr IVPB DAILY [facility] Stop: 02/27/17 11:31 Last Admin: 02/25/17 09:24 Dose: 110 mls/hr Heparin Sodium/Dextrose (Heparin 25,000 Units/250ml In D5w) 25,000 units in 250 mls @ 8 mls/hr IV .Q24H [facility] PRN Reason: Protocol Last Titration: 02/25/17 16:15 Dose: 6.5 mls/hr Levothyroxine Sodium (Synthroid) 100 mcg PO DAILY@0630 [facility] Last Admin: 02/25/17 06:30 Dose: 100 mcg Pantoprazole Sodium (Protonix Inj) 40 mg IVP DAILY [facility] Last Admin: 02/25/17 08:44 Dose: 40 mg Valsartan (Diovan) 160 mg PO DAILY [facility] Last Admin: 02/25/17 08:45 Dose: 160 mg Warfarin Sodium (Coumadin) 5 mg PO ONCE ONE PRN Reason: Protocol Stop: 02/25/17 21:01 - Labs Labs: 02/25/17 06:43 02/25/17 08:32 PT 11.1 SECONDS (9.6-11.2) 02/25/17 08:32 INR 1.07 (0.92-1.08) 02/25/17 08:32 APTT 66.1 SECONDS (23.3-32.5) H* D 02/25/17 08:32 - Respiratory Exam Respiratory Exam: NORMAL BREATHING PATTERN - Cardiovascular Exam Cardiovascular Exam: REGULAR RHYTHM - GI/Abdominal Exam GI & Abdominal Exam: Normal Bowel Sounds Assessment and Plan - Assessment and Plan (Free Text) Plan: LGI bleed BRBPR etiol? Hx of PTE/DVT coumadin therapy s/p Endoscopy and colonoscopy 2 weeks ago Polyp removed?? transfused FFP + 2 units RBC monitor H&H No GI bleeding Heparin restart coumadin Hx PTE/DVT Chronic cough ? Bronchiectasis Pulnonary consult appreciated HTN GERD S/P cholecystectomy Vit B12 deficiency
--- NOTE | 2017-02-25 23:03 | CP.PCM.PN ---
Subjective - Date & Time of Evaluation Date of Evaluation: 02/25/17 Time of Evaluation: 13:00 - Subjective Subjective: No complaints Objective - Vital Signs/Intake and Output Vital Signs (last 24 hours): Temp Pulse Resp BP Pulse Ox 98.4 F 76 22 139/52 L 98 02/25/17 20:00 02/25/17 20:00 02/25/17 20:00 02/25/17 20:00 02/25/17 20:00 Intake and Output: 02/25/17 02/26/17 18:59 06:59 Intake Total 772 341 Balance 772 341 - Medications Medications: Current Medications Atenolol (Tenormin) 25 mg PO DAILY [facility] Last Admin: 02/25/17 08:45 Dose: 25 mg Cyanocobalamin (Vitamin B12 1000 Mcg/Ml Inj) 1,000 mcg IM DAILY [facility] Stop: 02/28/17 09:01 Last Admin: 02/25/17 08:45 Dose: 1,000 mcg Home Med (Difluprednate [Durezol]) 1 drop OS BID [facility] Last Admin: 02/25/17 11:42 Dose: Not Given Iron Sucrose 200 mg/ Sodium (Chloride) 110 mls @ 110 mls/hr IVPB DAILY [facility] Stop: 02/27/17 11:31 Last Admin: 02/25/17 09:24 Dose: 110 mls/hr Heparin Sodium/Dextrose (Heparin 25,000 Units/250ml In D5w) 25,000 units in 250 mls @ 8 mls/hr IV .Q24H [facility] PRN Reason: Protocol Last Admin: 02/25/17 21:50 Dose: 6.5 mls/hr Levothyroxine Sodium (Synthroid) 100 mcg PO DAILY@0630 [facility] Last Admin: 02/25/17 06:30 Dose: 100 mcg Pantoprazole Sodium (Protonix Inj) 40 mg IVP DAILY [facility] Last Admin: 02/25/17 08:44 Dose: 40 mg Valsartan (Diovan) 160 mg PO DAILY [facility] Last Admin: 02/25/17 08:45 Dose: 160 mg - Labs Labs: 02/25/17 06:43 02/25/17 08:32 PT 11.1 SECONDS (9.6-11.2) 02/25/17 08:32 INR 1.07 (0.92-1.08) 02/25/17 08:32 APTT 48.3 SECONDS (23.3-32.5) H 02/25/17 22:07 - Head Exam Head Exam: ATRAUMATIC - Eye Exam Eye Exam: Normal appearance - ENT Exam ENT Exam: Mucous Membranes Dry - Respiratory Exam Respiratory Exam: NORMAL BREATHING PATTERN - Cardiovascular Exam Cardiovascular Exam: +S1, +S2 - GI/Abdominal Exam GI & Abdominal Exam: Normal Bowel Sounds Assessment and Plan (1) Anemia Assessment & Plan: iron and b12 deficiency on replacement s/p PRBC transfusion H/H improving no evidence of further GI bleeding on anticoagulation Status: Acute (2) History of pulmonary embolism Assessment & Plan: 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
[2017-02-26 05:32] LABS: PARTIAL THROMBOPLASTIN TIME 45.7 SECONDS (23.3-32.5)
[2017-02-26] MEDS: Levothyroxine 100 MCG TAB PO SCH (06:15)
--- NOTE | 2017-02-26 16:20 | CP.PCM.PN ---
Subjective - Date & Time of Evaluation Date of Evaluation: 02/26/17 Time of Evaluation: 12:00 - Subjective Subjective: no bleeding Objective - Vital Signs/Intake and Output Vital Signs (last 24 hours): Temp Pulse Resp BP Pulse Ox 97.7 F 73 20 118/62 98 02/26/17 15:49 02/26/17 15:49 02/26/17 15:49 02/26/17 15:49 02/26/17 15:49 Intake and Output: 02/26/17 02/26/17 06:59 18:59 Intake Total 676 Balance 676 - Medications Medications: Current Medications Atenolol (Tenormin) 25 mg PO DAILY [facility] Last Admin: 02/26/17 08:33 Dose: 25 mg Cyanocobalamin (Vitamin B12 1000 Mcg/Ml Inj) 1,000 mcg IM DAILY [facility] Stop: 02/28/17 09:01 Last Admin: 02/26/17 08:34 Dose: 1,000 mcg Enoxaparin Sodium (Lovenox) 60 mg SC Q12 [facility] PRN Reason: Protocol Home Med (Difluprednate [Durezol]) 1 drop OS BID [facility] Last Admin: 02/26/17 08:33 Dose: 1 drop Iron Sucrose 200 mg/ Sodium (Chloride) 110 mls @ 110 mls/hr IVPB DAILY [facility] Stop: 02/27/17 11:31 Last Admin: 02/26/17 11:05 Dose: 110 mls/hr Heparin Sodium/Dextrose (Heparin 25,000 Units/250ml In D5w) 25,000 units in 250 mls @ 8 mls/hr IV .Q24H [facility] PRN Reason: Protocol Last Titration: 02/26/17 06:08 Dose: 8 mls/hr Levothyroxine Sodium (Synthroid) 100 mcg PO DAILY@0630 [facility] Last Admin: 02/26/17 06:15 Dose: 100 mcg Pantoprazole Sodium (Protonix Inj) 40 mg IVP DAILY [facility] Last Admin: 02/26/17 08:33 Dose: 40 mg Valsartan (Diovan) 160 mg PO DAILY [facility] Last Admin: 02/26/17 08:33 Dose: 160 mg Warfarin Sodium (Coumadin) 7.5 mg PO QD5 [facility] PRN Reason: Protocol Stop: 02/26/17 17:01 - Labs Labs: 02/25/17 06:43 02/25/17 08:32 PT 11.4 SECONDS (9.6-11.2) H 02/26/17 04:20 INR 1.10 (0.92-1.08) H 02/26/17 04:20 APTT 85.7 SECONDS (23.3-32.5) H* D 02/26/17 12:25 - GI/Abdominal Exam GI & Abdominal Exam: Soft, Normal Bowel Sounds Assessment and Plan - Assessment and Plan (Free Text) Assessment: 76 yo female with rectal bleeding no bleeding dc planning
--- NOTE | 2017-02-26 18:32 | CP.PCM.PN ---
Subjective - Date & Time of Evaluation Date of Evaluation: 02/26/17 Time of Evaluation: 15:00 - Subjective Subjective: No complaints Objective - Vital Signs/Intake and Output Vital Signs (last 24 hours): Temp Pulse Resp BP Pulse Ox 97.7 F 73 20 118/62 98 02/26/17 15:49 02/26/17 15:49 02/26/17 15:49 02/26/17 15:49 02/26/17 15:49 Intake and Output: 02/26/17 02/26/17 06:59 18:59 Intake Total 676 Balance 676 - Medications Medications: Current Medications Atenolol (Tenormin) 25 mg PO DAILY [facility] Last Admin: 02/26/17 08:33 Dose: 25 mg Cyanocobalamin (Vitamin B12 1000 Mcg/Ml Inj) 1,000 mcg IM DAILY [facility] Stop: 02/28/17 09:01 Last Admin: 02/26/17 08:34 Dose: 1,000 mcg Enoxaparin Sodium (Lovenox) 60 mg SC Q12 [facility] PRN Reason: Protocol Home Med (Difluprednate [Durezol]) 1 drop OS BID [facility] Last Admin: 02/26/17 08:33 Dose: 1 drop Iron Sucrose 200 mg/ Sodium (Chloride) 110 mls @ 110 mls/hr IVPB DAILY [facility] Stop: 02/27/17 11:31 Last Admin: 02/26/17 11:05 Dose: 110 mls/hr Levothyroxine Sodium (Synthroid) 100 mcg PO DAILY@0630 [facility] Last Admin: 02/26/17 06:15 Dose: 100 mcg Pantoprazole Sodium (Protonix Inj) 40 mg IVP DAILY [facility] Last Admin: 02/26/17 08:33 Dose: 40 mg Pantoprazole Sodium (Protonix Ec Tab) 40 mg PO DAILY [facility] Valsartan (Diovan) 160 mg PO DAILY [facility] Last Admin: 02/26/17 08:33 Dose: 160 mg - Labs Labs: 02/25/17 06:43 02/25/17 08:32 PT 11.4 SECONDS (9.6-11.2) H 02/26/17 04:20 INR 1.10 (0.92-1.08) H 02/26/17 04:20 APTT 85.7 SECONDS (23.3-32.5) H* D 02/26/17 12:25 - Head Exam Head Exam: ATRAUMATIC - Eye Exam Eye Exam: Normal appearance - ENT Exam ENT Exam: Mucous Membranes Dry - Respiratory Exam Respiratory Exam: NORMAL BREATHING PATTERN - Cardiovascular Exam Cardiovascular Exam: +S1, +S2 - GI/Abdominal Exam GI & Abdominal Exam: Normal Bowel Sounds - Extremities Exam Extremities Exam: Normal Inspection Assessment and Plan (1) Anemia Assessment & Plan: iron and b12 deficiency on replacement H/H improved no further evidence of GI bleeding Status: Acute (2) History of pulmonary embolism Assessment & Plan: on therapeutic anticoagulation heparin discontinued and switched to lovenox coumadin increased to 7.5mg tonight; goal inr 2-3 Status: Inactive (3) Coagulopathy Assessment & Plan: anticoagulation Status: Acute
--- NOTE | 2017-02-26 20:31 | CP.PCM.PN ---
Subjective - Date & Time of Evaluation Date of Evaluation: 02/26/17 Time of Evaluation: 22:22 - Subjective Subjective: Above noted Objective - Vital Signs/Intake and Output Vital Signs (last 24 hours): Temp Pulse Resp BP Pulse Ox 97.7 F 73 20 118/62 98 02/26/17 15:49 02/26/17 15:49 02/26/17 15:49 02/26/17 15:49 02/26/17 15:49 - Medications Medications: Current Medications Atenolol (Tenormin) 25 mg PO DAILY [facility] Last Admin: 02/26/17 08:33 Dose: 25 mg Cyanocobalamin (Vitamin B12 1000 Mcg/Ml Inj) 1,000 mcg IM DAILY [facility] Stop: 02/28/17 09:01 Last Admin: 02/26/17 08:34 Dose: 1,000 mcg Enoxaparin Sodium (Lovenox) 60 mg SC Q12 [facility] PRN Reason: Protocol Home Med (Difluprednate [Durezol]) 1 drop OS BID [facility] Last Admin: 02/26/17 17:00 Dose: 1 drop Iron Sucrose 200 mg/ Sodium (Chloride) 110 mls @ 110 mls/hr IVPB DAILY [facility] Stop: 02/27/17 11:31 Last Admin: 02/26/17 11:05 Dose: 110 mls/hr Levothyroxine Sodium (Synthroid) 100 mcg PO DAILY@0630 [facility] Last Admin: 02/26/17 06:15 Dose: 100 mcg Pantoprazole Sodium (Protonix Inj) 40 mg IVP DAILY [facility] Last Admin: 02/26/17 08:33 Dose: 40 mg Pantoprazole Sodium (Protonix Ec Tab) 40 mg PO DAILY [facility] Valsartan (Diovan) 160 mg PO DAILY [facility] Last Admin: 02/26/17 08:33 Dose: 160 mg - Labs Labs: 02/25/17 06:43 02/25/17 08:32 PT 11.4 SECONDS (9.6-11.2) H 02/26/17 04:20 INR 1.10 (0.92-1.08) H 02/26/17 04:20 APTT 85.7 SECONDS (23.3-32.5) H* D 02/26/17 12:25 - Respiratory Exam Respiratory Exam: NORMAL BREATHING PATTERN - Cardiovascular Exam Cardiovascular Exam: REGULAR RHYTHM - GI/Abdominal Exam GI & Abdominal Exam: Normal Bowel Sounds Assessment and Plan - Assessment and Plan (Free Text) Assessment: LGI bleed BRBPR etiol? Hx of PTE/DVT coumadin therapy s/p Endoscopy and colonoscopy 2 weeks ago Polyp removed?? transfused FFP + 2 units RBC monitor H&H No GI bleeding Heparin d/c Lovenox restarted coumadin Hx PTE/DVT Chronic cough ? Bronchiectasis Pulnonary consult appreciated HTN GERD S/P cholecystectomy Vit B12 deficiency
[2017-02-26] MEDS: Enoxaparin 60 mg Syringe SC SCH (20:50)
[2017-02-27] MEDS: Levothyroxine 100 MCG TAB PO SCH (06:09)
[2017-02-27] MEDS: Pantoprazole 40 mg EC Tab PO SCH (09:22)
[2017-02-27] MEDS: Enoxaparin 60 mg Syringe SC SCH ×2 (09:24→21:10)
--- NOTE | 2017-02-27 10:21 | CP.PCM.PN ---
Subjective - Date & Time of Evaluation Date of Evaluation: 02/27/17 Time of Evaluation: 10:17 - Subjective Subjective: Up out of bed, ambulating in her room. Warfarin has been started, sub-therapeutic INR thus far. Has been having BM w/o bleeding. Vital signs have been stable. Breath sounds are well heard bilaterally w/o wheezes or bronchial breath sounds. Early dry rales are heard in the bases bilaterally. When INR is therapeutic she may be discharged and continue outpatient followup. Outpatient testing can be done at any time to include HRCT chest, SCAR, SACE, RA. Objective - Vital Signs/Intake and Output Vital Signs (last 24 hours): Temp Pulse Resp BP Pulse Ox 99.0 F 86 20 158/71 H 99 02/27/17 08:15 02/27/17 09:23 02/27/17 08:15 02/27/17 09:23 02/27/17 08:15 - Medications Medications: Current Medications Atenolol (Tenormin) 25 mg PO DAILY [facility] Last Admin: 02/27/17 09:23 Dose: 25 mg Cyanocobalamin (Vitamin B12 1000 Mcg/Ml Inj) 1,000 mcg IM DAILY [facility] Stop: 02/28/17 09:01 Last Admin: 02/26/17 08:34 Dose: 1,000 mcg Enoxaparin Sodium (Lovenox) 60 mg SC Q12 [facility] PRN Reason: Protocol Last Admin: 02/27/17 09:24 Dose: 60 mg Home Med (Difluprednate [Durezol]) 1 drop OS BID [facility] Last Admin: 02/27/17 09:25 Dose: 1 drop Iron Sucrose 200 mg/ Sodium (Chloride) 110 mls @ 110 mls/hr IVPB DAILY [facility] Stop: 02/27/17 11:31 Last Admin: 02/26/17 11:05 Dose: 110 mls/hr Levothyroxine Sodium (Synthroid) 100 mcg PO DAILY@0630 [facility] Last Admin: 02/27/17 06:09 Dose: 100 mcg Pantoprazole Sodium (Protonix Ec Tab) 40 mg PO DAILY [facility] Last Admin: 02/27/17 09:22 Dose: 40 mg Valsartan (Diovan) 160 mg PO DAILY [facility] Last Admin: 02/27/17 09:24 Dose: 160 mg - Labs Labs: 02/25/17 06:43 02/25/17 08:32 PT 11.4 SECONDS (9.6-11.2) H 02/26/17 04:20 INR 1.10 (0.92-1.08) H 02/26/17 04:20 APTT 85.7 SECONDS (23.3-32.5) H* D 02/26/17 12:25 Assessment and Plan (1) Rectal bleed Status: Acute (2) Anemia Status: Acute (3) History of pulmonary embolism Status: Inactive (4) ILD (interstitial lung disease) Status: Chronic
[2017-02-27 10:48] LABS: PARTIAL THROMBOPLASTIN TIME 33.1 SECONDS (23.3-32.5)
--- NOTE | 2017-02-27 19:28 | CP.PCM.PN ---
Subjective - Date & Time of Evaluation Date of Evaluation: 02/27/17 Time of Evaluation: 22:22 - Subjective Subjective: No bleeding Objective - Vital Signs/Intake and Output Vital Signs (last 24 hours): Temp Pulse Resp BP Pulse Ox 98.3 F 70 18 117/65 100 02/27/17 17:00 02/27/17 17:00 02/27/17 17:00 02/27/17 17:00 02/27/17 17:00 - Medications Medications: Current Medications Atenolol (Tenormin) 25 mg PO DAILY [facility] Last Admin: 02/27/17 09:23 Dose: 25 mg Cyanocobalamin (Vitamin B12 1000 Mcg/Ml Inj) 1,000 mcg IM DAILY [facility] Stop: 02/28/17 09:01 Last Admin: 02/27/17 09:20 Dose: 1,000 mcg Enoxaparin Sodium (Lovenox) 60 mg SC Q12 [facility] PRN Reason: Protocol Last Admin: 02/27/17 09:24 Dose: 60 mg Home Med (Difluprednate [Durezol]) 1 drop OS BID [facility] Last Admin: 02/27/17 17:47 Dose: 1 drop Levothyroxine Sodium (Synthroid) 100 mcg PO DAILY@0630 [facility] Last Admin: 02/27/17 06:09 Dose: 100 mcg Pantoprazole Sodium (Protonix Ec Tab) 40 mg PO DAILY [facility] Last Admin: 02/27/17 09:22 Dose: 40 mg Valsartan (Diovan) 160 mg PO DAILY [facility] Last Admin: 02/27/17 09:24 Dose: 160 mg - Labs Labs: 02/25/17 06:43 02/25/17 08:32 PT 12.1 SECONDS (9.6-11.2) H 02/27/17 09:40 INR 1.16 (0.92-1.08) H 02/27/17 09:40 APTT 33.1 SECONDS (23.3-32.5) H D 02/27/17 09:40 - Respiratory Exam Respiratory Exam: NORMAL BREATHING PATTERN - Cardiovascular Exam Cardiovascular Exam: REGULAR RHYTHM - GI/Abdominal Exam GI & Abdominal Exam: Normal Bowel Sounds Assessment and Plan - Assessment and Plan (Free Text) Assessment: LGI bleed BRBPR etiol? Hx of PTE/DVT coumadin therapy s/p Endoscopy and colonoscopy 2 weeks ago Polyp removed?? transfused FFP + 2 units RBC monitor H&H No GI bleeding Heparin d/c Lovenox restarted coumadin Hx PTE/DVT Chronic cough ? Bronchiectasis Pulnonary consult appreciated HTN GERD S/P cholecystectomy Vit B12 deficiency
[2017-02-27 23:49] VITALS: RESP 20
[2017-02-28] MEDS: Levothyroxine 100 MCG TAB PO SCH (07:18)
[2017-02-28 07:46] LABS: HEMATOCRIT 31.1 % (34.0-47.0); MEAN CELL VOLUME 90.6 fl (81.0-99.0); MEAN CORPUSCULAR HGB CONC 34.2 g/dL (33.0-37.0); RED CELL DISTRIBUTION WIDTH 15.6 % (11.5-14.5); WHITE BLOOD COUNT 5.6 K/uL (4.8-10.8)
[2017-02-28 08:27] LABS: BLOOD UREA NITROGEN 15 mg/dl (7-17); CALCIUM 9.2 mg/dL (8.4-10.2); CARBON DIOXIDE 30 mmol/L (22-30); CHLORIDE 103 mmol/L (98-107); GFR AFRICAN-AMERICAN > 60; GLUCOSE,RANDOM 90 mg/dL (65-105); POTASSIUM 4.4 MMOL/L (3.6-5.0); SODIUM 140 mmol/l (132-148)
[2017-02-28] MEDS: Enoxaparin 60 mg Syringe SC SCH (09:07)
[2017-02-28] MEDS: Pantoprazole 40 mg EC Tab PO SCH (09:07)
[2017-02-28 16:44] VITALS: BP 113/66; PULSE 77; TEMP 98.1; O2SAT 97
--- NOTE | 2017-02-28 19:49 | CP.PCM.PN ---
Subjective - Date & Time of Evaluation Date of Evaluation: 02/28/17 Time of Evaluation: 22:22 - Subjective Subjective: Doing well Multiple calls to daughters Objective - Vital Signs/Intake and Output Vital Signs (last 24 hours): Temp Pulse Resp BP Pulse Ox 98.1 F 77 20 113/66 97 02/28/17 16:43 02/28/17 16:43 02/28/17 16:43 02/28/17 16:43 02/28/17 16:43 - Labs Labs: 02/28/17 05:30 02/28/17 05:30 PT 13.4 SECONDS (9.6-11.2) H 02/28/17 05:30 INR 1.29 (0.92-1.08) H 02/28/17 05:30 APTT 33.1 SECONDS (23.3-32.5) H D 02/27/17 09:40 - Respiratory Exam Respiratory Exam: NORMAL BREATHING PATTERN - Cardiovascular Exam Cardiovascular Exam: REGULAR RHYTHM - GI/Abdominal Exam GI & Abdominal Exam: Normal Bowel Sounds Assessment and Plan - Assessment and Plan (Free Text) Assessment: LGI bleed BRBPR etiol? Hx of PTE/DVT coumadin therapy s/p Endoscopy and colonoscopy 2 weeks ago Polyp removed?? transfused FFP + 2 units RBC monitor H&H No GI bleeding Heparin d/c Lovenox restarted coumadin Hx PTE/DVT Chronic cough ? Bronchiectasis Pulnonary consult appreciated HTN GERD S/P cholecystectomy Vit B12 deficiency
== END 2017-02-28 18:27 | disposition home or self-care (01) | DRG 174 ==
LOC: H.ER 07:00 → H.ERHOLD 09:51 → H.TEL 11:48 → H.ICU/CCU 16:27 → H.MEDSURG1 02-26 15:10
PROVIDERS: ADMIT Family Medicine Geriatric Medicine; ATTEND Family Medicine Geriatric Medicine
PROC: 30233K1 Transfusion of Nonautologous Frozen Plasma into Peripheral Vein, Percutaneous Approach (ICD-10-PCS; principal; 2017-02-19)
PROC: 30233H1 Transfusion of Nonautologous Whole Blood into Peripheral Vein, Percutaneous Approach (ICD-10-PCS; 2017-02-20)
DX: K62.5 Hemorrhage of anus and rectum (principal); D68.32 Hemorrhagic disorder due to extrinsic circulating anticoagulants; J84.10 Pulmonary fibrosis, unspecified; D62 Acute posthemorrhagic anemia; D51.9 Vitamin B12 deficiency anemia, unspecified; I10 Essential (primary) hypertension; E03.9 Hypothyroidism, unspecified; K21.9 Gastro-esophageal reflux disease without esophagitis; Z86.711 Personal history of pulmonary embolism; Z79.01 Long term (current) use of anticoagulants; K52.9 Noninfective gastroenteritis and colitis, unspecified; J47.9 Bronchiectasis, uncomplicated; Z87.01 Personal history of pneumonia (recurrent); Z96.659 Presence of unspecified artificial knee joint; Z90.49 Acquired absence of other specified parts of digestive tract

== ENCOUNTER 2018-11-29 18:24 | Inpatient (IN) | payer MEDICARE, MEDICAID ==
--- NOTE | 2018-11-29 19:49 | ED PDOC ---
History of Present Illness History of Present Illness: 78 y/o female with a PMHx of Pulmonary Embolism (x3), pulmonary fibrosis and HTN presents to the ED for evaluation of shortness of breath, onset three days ago. Patient states shortness of breath is associated with a productive cough of yellow phlegm. History obtained through sonRavindra who translated for the patient as per her request (yoruba), at bedside. Patient and family are concern ed for another pulmonary embolism. Otherwise, patient denies any fever. Of note, patient is currently on coumadine. PMD: Paolo Arguello pulm: [facility] HPI: Influenza Time Seen by Provider: 11/29/18 19:20 Chief Complaint: Cough, Cold, Congestion Chief Complaint (Provider): Shortness of Breath History Per: Patient Exam Limitations: no limitations Onset/Duration Of Symptoms: Days (x3) Past Medical History Reviewed: Historical Data, Nursing Documentation, Vital Signs Vital Signs: Last Vital Signs Temp 97.5 F L 11/29/18 18:31 Pulse 94 H 11/29/18 18:31 Resp 18 11/29/18 18:31 BP 155/70 H 11/29/18 18:31 Pulse Ox 95 11/29/18 18:31 - Medical History PMH: Arthritis (knees), COPD, Depression, Emphysema, Gastritis, GERD, HTN, Hypothyroidism, Pneumonia, Pulmonary Embolism Denies: Anxiety, HIV, Migraine, Chronic Kidney Disease, Seizures - Surgical History Surgical History: Cholecystectomy - Family History Family History: States: Unknown Family Hx - Social History Current smoker - smoking cessation education provided: No Alcohol: None Drugs: Denies - Immunization History Hx Tetanus Toxoid Vaccination: No Hx Influenza Vaccination: No Hx Pneumococcal Vaccination: No - Home Medications Home Medications: Ambulatory Orders Medication Instructions Recorded Albuterol Sulfate [Proair Hfa] 2 puff IH Q4 PRN 11/29/18 Doxepin [Doxepin HCl] 25 mg PO DAILY 11/29/18 Fluticasone/Vilanterol [Breo 1 each IH DAILY 11/29/18 Ellipta 200-25 Mcg INH] Levothyroxine [Synthroid] 100 mcg PO DAILY 11/29/18 RX: Losartan Potassium 50 mg PO DAILY 11/29/18 RX: Omeprazole 40 mg PO DAILY 11/29/18 Warfarin Sodium [Jantoven] 5 mg PO HS 11/29/18 - Allergies Allergies/Adverse Reactions: Allergies Allergy/AdvReac Type Severity Reaction Status Date / Time No Known Allergies Allergy Verified 11/30/18 04:23 Review of Systems ROS Statement: Except As Marked, All Systems Reviewed And Found Negative Constitutional: Negative for: Fever Respiratory: Positive for: Cough, Shortness of Breath Physical Exam - Reviewed Nursing Documentation Reviewed: Yes Vital Signs Reviewed: Yes - Physical Exam Appears: Positive for: No Acute Distress Head Exam: Positive for: ATRAUMATIC, NORMOCEPHALIC Skin: Positive for: Normal Color, Warm, Dry Eye Exam: Positive for: Normal appearance, EOMI, PERRL Neck: Positive for: Normal, Painless ROM Cardiovascular/Chest: Positive for: Regular Rate, Rhythm. Negative for: Murmur Respiratory: Positive for: Decreased Breath Sounds, Other (tachypneic) Gastrointestinal/Abdominal: Positive for: Normal Exam, Soft. Negative for: Tenderness Extremity: Positive for: Normal ROM. Negative for: Deformity Neurologic/Psych: Positive for: Alert, Oriented (x3), Other (speaking full sentences). Negative for: Motor/Sensory Deficits Medical Decision Making Medical Decision Making: Time: 1944 Impression: sob, Rule out Pulmonary Embolism vs pneumonia Plan: -- CT Angio Chest PE Protocol -- CMP -- CBC with differentials -- PTT -- Prothrombin Time Time: 2211 CT RESULTS FINDINGS: PULMONARY ARTERIES No evidence of central or segmental pulmonary embolism is seen. AORTA There is no evidence for aneurysm or dissection of the thoracic aorta. LUNGS There is noted to be a diffuse bilateral interstitial honeycomb lung pattern; predominantly involving the periphery of both lung carmona; slightly more pro nounced in the basilar regions which could indicate UIP. Many additional diagnostic considerations for this finding are possible. Several considerations include: sarcoidosis, neoplasia, autoimmune and collagen vascular diseases, amyloidosis, idiopathic pulmonary fibrosis. This is an incomplete list of possibilities. Consideration could be given to pulmonary consultation. PLEURAL SPACES No evidence of pneumothorax. No pleural effusion. HEART There is mild cardiomegaly. No pericardial effusion. Atherosclerotic plaquing is noted within the left anterior descending coronary artery. LYMPH NODES Bilateral hilar and diffuse mediastinal lymphadenopathy, likely reactive. BONES No focal osseous abnormality or acute fracture. UPPER ABDOMEN Images of the upper abdomen demonstrate the presence of a small hiatal hernia. There is also noted to have been previous cholecystectomy. IMPRESSION: 1. No identification of PE. 2. An interstitial lung disease processes present as described above. Numerous, but not all, considerations are given above. Pulmonary consultation could be considered. 3. Mild cardiomegaly. 4. Bilateral hilar and diffuse mediastinal lymphadenopathy, likely reactive. Electronically signed on Nov 29, 2018 10:11:50 PM EST by: Ramsey Estevez M.D., MARTINEZ Certified By [facility] Trained MRI and CT Specialist [id number] ct shows no pe, no pneumonia ct results given to pt and son at bedside. questions answered. Pt likely suffering from interstitial lung exacerbation/URI pt given abx, nebs, steroids spoke wtih DR Donald who wants to admit pt to obs tele pt has seen dr harding in past , so will order consult Scribe Attestation: Documented by Milton Guillaume, acting as a scribe for Michael Goodrich MD. Provider Scribe Attestation: All medical record entries made by the Scribe were at my direction and personally dictated by me. I have reviewed the chart and agree that the record accurately reflects my personal performance of the history, physical exam, medical decision making, and the department course for this patient. I have also personally directed, reviewed, and agree with the discharge instructions and di sposition. - Laboratory Results Result Diagrams: 11/29/18 20:00 11/29/18 20:00 - ECG O2 Sat by Pulse Oximetry: 95 (RA) Pulse Ox Interpretation: Normal Disposition - Clinical Impression Clinical Impression: Shortness of breath, ILD (interstitial lung disease) - Patient ED Disposition Is Patient to be Admitted: Yes Counseled Patient/Family Regarding: Studies Performed, Diagnosis - Disposition Disposition Time: 03:25 Condition: STABLE
[2018-11-29 20:05] LABS: BASO # 0.1 K/uL (0.0-0.2); EOS # 0.4 K/uL (0.0-0.7); EOS % 6.3 % (0.0-4.0); HEMOGLOBIN 14.5 g/dL (12.0-16.0); LYMPH # 1.2 K/uL (1.0-4.3); LYMPH % 18.2 % (20.0-40.0); MEAN CELL VOLUME 92.2 fl (81.0-99.0); MEAN CORPUSCULAR HEMOGLOBIN 30.8 pg (27.0-31.0); MEAN CORPUSCULAR HGB CONC 33.5 g/dL (33.0-37.0); MEAN PLATELET VOLUME 8.5 fl (7.2-11.7); MONO # 0.6 K/uL (0.0-0.8); MONO % 8.7 % (0.0-10.0); NEUT # 4.4 K/uL (1.8-7.0); NEUT % 65.8 % (50.0-75.0); NRBC % 0.1 % (0.0-0.0); RBC 4.71 Mil/uL (3.80-5.20); RED CELL DISTRIBUTION WIDTH 14.1 % (11.5-14.5); WHITE BLOOD COUNT 6.6 K/uL (4.8-10.8)
[2018-11-29 20:12] LABS: BLOOD UREA NITROGEN 11 mg/dl (7-17); CALCIUM 9.5 mg/dL (8.4-10.2); GFR NON-AFRICAN AMERICAN > 60
[2018-11-29 20:13] LABS: INR 1.8; PROTHROMBIN TIME 20.9 Seconds (9.8-13.1)
[2018-11-29 20:16] LABS: ALBUMIN 4.4 g/dL (3.5-5.0); ALT/SGPT 17 U/L (9-52); AST/SGOT 36 U/L (14-36); PARTIAL THROMBOPLASTIN TIME 32.9 Seconds (25.6-37.1)
[2018-11-29] MEDS ORDERED: Iodixanol 320 MG/ML 100 ML BOTTLE IV ONE (20:31)
[2018-11-29] MEDS ORDERED: Sodium Chloride 0.9% 50 ML IV ONE (20:31)
[2018-11-29] MEDS ORDERED: Albuterol 0.083% Inhal Sol (2.5 mg/3 mL) UD INH ONE (22:15)
[2018-11-29] MEDS ORDERED: Albuterol HFA 90 mcg/actuation (8 g) IH PRN (23:10)
[2018-11-29] MEDS ORDERED: Azithromycin 500 MG in Sodium Chloride 0.9% 250 ML IVPB STA (23:17)
[2018-11-29] MEDS ORDERED: Azithromycin 500 MG IV IVPB ONE (23:26)
[2018-11-29] MEDS ORDERED: Albuterol 0.083% Inhal Sol (2.5 mg/3 mL) UD ONE (23:26)
[2018-11-30 04:24] VITALS: BMI 23.8
[2018-11-30] MEDS: Levothyroxine 100 MCG TAB PO SCH (06:52)
[2018-11-30] MEDS ORDERED: Pneumococcal 23-Valent Vaccine IM ONE (07:06)
[2018-11-30] MEDS ORDERED: Influenza Vaccine 60 MCG/0.5 ML SYR (3 yr & up) IM ONE (07:06)
[2018-11-30 08:29] LABS: INR 1.9; PROTHROMBIN TIME 21.7 Seconds (9.8-13.1)
[2018-11-30] MEDS: Fluticasone-Salmeterol 250-50mcg Diskus IH SCH ×2 (08:46→20:03)
[2018-11-30] MEDS: Pantoprazole 40 mg EC Tab PO SCH (08:47)
--- NOTE | 2018-11-30 11:10 | CP.PCM.CON ---
Past Patient History - Infectious Disease Hx of Infectious Diseases: None - Past Medical History & Family History Past Medical History?: Yes - Past Social History Alcohol: None Drugs: Denies - CARDIAC Hx Hypertension: Yes - PULMONARY Hx Chronic Obstructive Pulmonary Disease (COPD): Yes Hx Emphysema: Yes Hx Pneumonia: Yes Hx Pulmonary Embolism: Yes - NEUROLOGICAL Hx Migraine: No Hx Seizures: No - HEENT Hx HEENT Problems: No - RENAL Hx Chronic Kidney Disease: No - ENDOCRINE/METABOLIC Hx Hypothyroidism: Yes - HEMATOLOGICAL/ONCOLOGICAL Hx Human Immunodeficiency Virus (HIV): No - INTEGUMENTARY Hx Dermatological Problems: No - MUSCULOSKELETAL/RHEUMATOLOGICAL Hx Arthritis: Yes (knees) - GASTROINTESTINAL Hx Gastritis: Yes - GENITOURINARY/GYNECOLOGICAL Hx Genitourinary Disorders: No - PSYCHIATRIC Hx Anxiety: No Hx Depression: Yes - SURGICAL HISTORY Hx Cholecystectomy: Yes - ANESTHESIA Hx Anesthesia: Yes Hx Anesthesia Reactions: No Hx Malignant Hyperthermia: No Meds Allergies/Adverse Reactions: Allergies Allergy/AdvReac Type Severity Reaction Status Date / Time No Known Allergies Allergy Verified 11/30/18 04:23 - Medications Medications: Current Medications Albuterol (Ventolin Hfa 90 Mcg/Actuation (8 G)) 2 puff IH Q4 PRN PRN Reason: Shortness of Breath Doxepin HCl (Sinequan) 25 mg PO DAILY [facility] Last Admin: 11/30/18 08:49 Dose: 25 mg Levothyroxine Sodium (Synthroid) 100 mcg PO DAILY@0630 [facility] Last Admin: 11/30/18 06:52 Dose: 100 mcg Losartan Potassium (Cozaar) 50 mg PO DAILY [facility] Last Admin: 11/30/18 08:47 Dose: 50 mg Pantoprazole Sodium (Protonix Ec Tab) 40 mg PO DAILY [facility] Last Admin: 11/30/18 08:47 Dose: 40 mg Fluticasone/Salmeterol (Advair Diskus 250/50) 1 puff IH Q12 [facility] Last Admin: 11/30/18 08:46 Dose: 1 puff Warfarin Sodium (Coumadin) 5 mg PO [facility]; Protocol Stop: 11/30/18 17:01 Results - Vital Signs Recent Vital Signs: Last Vital Signs Temp 97.6 F 11/30/18 08:00 Pulse 81 11/30/18 09:00 Resp 18 11/30/18 09:00 BP 132/61 11/30/18 09:00 Pulse Ox 97 11/30/18 09:00 - Labs Result Diagrams: 11/29/18 20:00 11/29/18 20:00 Labs: Laboratory Results - last 24 hr 11/29/18 11/29/18 11/29/18 20:00 20:00 20:00 WBC 6.6 RBC 4.71 Hgb 14.5 D Hct 43.4 MCV 92.2 MCH 30.8 MCHC 33.5 RDW 14.1 Plt Count 230 MPV 8.5 Neut % (Auto) 65.8 Lymph % (Auto) 18.2 L [place] % (Auto) 8.7 Eos % (Auto) 6.3 H Baso % (Auto) 1.0 Neut # (Auto) 4.4 Lymph # (Auto) 1.2 [place] # (Auto) 0.6 Eos # (Auto) 0.4 Baso # (Auto) 0.1 PT 20.9 H INR 1.8 APTT 32.9 Sodium 140 Potassium 4.7 Chloride 99 Carbon Dioxide 27 Anion Gap 19 BUN 11 Creatinine 0.5 L Est GFR ( Amer) > 60 Est GFR (Non-Af Amer) > 60 Random Glucose 108 H Calcium 9.5 Total Bilirubin 0.9 AST 36 ALT 17 Alkaline Phosphatase 76 Troponin I 0.0130 Total Protein 8.9 H Albumin 4.4 Globulin 4.5 H Albumin/Globulin Ratio 1.0 TSH 3rd Generation 11/30/18 11/30/18 05:15 08:05 WBC RBC Hgb Hct MCV MCH MCHC RDW Plt Count MPV Neut % (Auto) Lymph % (Auto) [place] % (Auto) Eos % (Auto) Baso % (Auto) Neut # (Auto) Lymph # (Auto) [place] # (Auto) Eos # (Auto) Baso # (Auto) PT 21.7 H INR 1.9 APTT Sodium Potassium Chloride Carbon Dioxide Anion Gap BUN Creatinine Est GFR ( Amer) Est GFR (Non-Af Amer) Random Glucose Calcium Total Bilirubin AST ALT Alkaline Phosphatase Troponin I < 0.0120 Total Protein Albumin Globulin Albumin/Globulin Ratio TSH 3rd Generation 1.91 Assessment & Plan (1) ILD (interstitial lung disease) Status: Chronic Priority: High Comment: IPF suspect on [place]. (2) Bronchiectasis Status: Chronic Priority: High Comment: Appears to be traction type related to the above. (3) Shortness of breath Status: Chronic Priority: High Comment: Secondary to the above. - Assessment and Plan (Free Text) Plan: Treat acute exacerbation with oral steroids and broad spectrum antibiotic. Continue aerosol therapy and follow up with outpatient [facility] Consultant regarding continuation of antifibrotic rx. - Date & Time Date: 11/30/18 Time: 11:16
--- NOTE | 2018-11-30 11:25 | CT ---
Date of service: 11/29/2018 PROCEDURE: CT Chest with contrast (Pulmonary Angiogram) HISTORY: sob, history of pe COMPARISON: Serial chest radiographs 03/28/2011 and 02/19/2017 TECHNIQUE: Axial computed tomography images were obtained of the chest in the pulmonary arterial phase of enhancement. Coronal and sagittal reformatted images were created and reviewed. Intravenous contrast dose: 99 cc Visipaque 320. Mean Hounsfield value in the main pulmonary artery: 450.53 Radiation dose: Total exam DLP = 236.66 mGy-cm. This CT exam was performed using one or more of the following dose reduction techniques: Automated exposure control, adjustment of the mA and/or kV according to patient size, and/or use of iterative reconstruction technique. FINDINGS: PULMONARY ARTERIES: Unremarkable. No pulmonary embolism. AORTA: No acute findings. No thoracic aortic aneurysm. No atherosclerotic calcification or mural plaque present. LUNGS: Severe interstitial lung disease. Extensive bronchiectatic change bilaterally. No underlying suspicious pulmonary nodules, masses or infiltrates. PLEURAL SPACES: Unremarkable. No effusion or pneumothorax. HEART: Unremarkable. No cardiomegaly. No significant pericardial effusion. LYMPH NODES: Mediastinal and hilar adenopathy, preponderance of lymph nodes 1.5 cm or less. BONES, CHEST WALL: Unremarkable. No fracture or destructive lesion OTHER FINDINGS: Unremarkable. IMPRESSION: Unremarkable CT pulmonary angiogram. No pulmonary embolus. Extensive and progressive interstitial lung disease with a component of bronchiectasis. Concordant results (preliminary interpretation) provided by [facility]. Procedure Completed: 21:24. Preliminary Report: Dictated and Authenticated: 22:11. Final Interpretation: 11:21. November 30, 2018
--- NOTE | 2018-11-30 11:32 | CP.PCM.CON ---
History of Present Illness - History of Present Illness History of Present Illness: 78 year old female with past medical history of pulmonary fibrosis admitted with 3 days shortness of breath and productive cough. Hemodynamically stable , PE w/u negative on Coumadin. R/O [place], inferior EKG abnormalities which are old. Alert and verbal in no distress. Past Patient History - Infectious Disease Hx of Infectious Diseases: None - Past Medical History & Family History Past Medical History?: Yes - Past Social History Alcohol: None Drugs: Denies - CARDIAC Hx Hypertension: Yes - PULMONARY Hx Chronic Obstructive Pulmonary Disease (COPD): Yes Hx Emphysema: Yes Hx Pneumonia: Yes Hx Pulmonary Embolism: Yes - NEUROLOGICAL Hx Migraine: No Hx Seizures: No - HEENT Hx HEENT Problems: No - RENAL Hx Chronic Kidney Disease: No - ENDOCRINE/METABOLIC Hx Hypothyroidism: Yes - HEMATOLOGICAL/ONCOLOGICAL Hx Human Immunodeficiency Virus (HIV): No - INTEGUMENTARY Hx Dermatological Problems: No - MUSCULOSKELETAL/RHEUMATOLOGICAL Hx Arthritis: Yes (knees) - GASTROINTESTINAL Hx Gastritis: Yes - GENITOURINARY/GYNECOLOGICAL Hx Genitourinary Disorders: No - PSYCHIATRIC Hx Anxiety: No Hx Depression: Yes - SURGICAL HISTORY Hx Cholecystectomy: Yes - ANESTHESIA Hx Anesthesia: Yes Hx Anesthesia Reactions: No Hx Malignant Hyperthermia: No Meds Allergies/Adverse Reactions: Allergies Allergy/AdvReac Type Severity Reaction Status Date / Time No Known Allergies Allergy Verified 11/30/18 04:23 - Medications Medications: Current Medications Albuterol (Ventolin Hfa 90 Mcg/Actuation (8 G)) 2 puff IH Q4 PRN PRN Reason: Shortness of Breath Doxepin HCl (Sinequan) 25 mg PO DAILY [facility] Last Admin: 11/30/18 08:49 Dose: 25 mg Levothyroxine Sodium (Synthroid) 100 mcg PO DAILY@0630 [facility] Last Admin: 11/30/18 06:52 Dose: 100 mcg Losartan Potassium (Cozaar) 50 mg PO DAILY [facility] Last Admin: 11/30/18 08:47 Dose: 50 mg Pantoprazole Sodium (Protonix Ec Tab) 40 mg PO DAILY [facility] Last Admin: 11/30/18 08:47 Dose: 40 mg Fluticasone/Salmeterol (Advair Diskus 250/50) 1 puff IH Q12 [facility] Last Admin: 11/30/18 08:46 Dose: 1 puff Warfarin Sodium (Coumadin) 5 mg PO [facility]; Protocol Stop: 11/30/18 17:01 Physical Exam - Head Exam Head Exam: NORMAL INSPECTION - Neck Exam Neck exam: Positive for: Normal Inspection - Respiratory Exam Additional comments: diffuse dry crackles bilaterally - Cardiovascular Exam Cardiovascular Exam: REGULAR RHYTHM - GI/Abdominal Exam GI & Abdominal Exam: Normal Bowel Sounds - Extremities Exam Extremities exam: Positive for: normal inspection Results - Vital Signs Recent Vital Signs: Last Vital Signs Temp 97.6 F 11/30/18 08:00 Pulse 81 11/30/18 09:00 Resp 18 11/30/18 09:00 BP 132/61 11/30/18 09:00 Pulse Ox 97 11/30/18 09:00 - Labs Result Diagrams: 11/29/18 20:00 11/29/18 20:00 Labs: Laboratory Results - last 24 hr 11/29/18 11/29/18 11/29/18 20:00 20:00 20:00 WBC 6.6 RBC 4.71 Hgb 14.5 D Hct 43.4 MCV 92.2 MCH 30.8 MCHC 33.5 RDW 14.1 Plt Count 230 MPV 8.5 Neut % (Auto) 65.8 Lymph % (Auto) 18.2 L [place] % (Auto) 8.7 Eos % (Auto) 6.3 H Baso % (Auto) 1.0 Neut # (Auto) 4.4 Lymph # (Auto) 1.2 [place] # (Auto) 0.6 Eos # (Auto) 0.4 Baso # (Auto) 0.1 PT 20.9 H INR 1.8 APTT 32.9 Sodium 140 Potassium 4.7 Chloride 99 Carbon Dioxide 27 Anion Gap 19 BUN 11 Creatinine 0.5 L Est GFR ( Amer) > 60 Est GFR (Non-Af Amer) > 60 Random Glucose 108 H Calcium 9.5 Total Bilirubin 0.9 AST 36 ALT 17 Alkaline Phosphatase 76 Troponin I 0.0130 Total Protein 8.9 H Albumin 4.4 Globulin 4.5 H Albumin/Globulin Ratio 1.0 TSH 3rd Generation 11/30/18 11/30/18 05:15 08:05 WBC RBC Hgb Hct MCV MCH MCHC RDW Plt Count MPV Neut % (Auto) Lymph % (Auto) [place] % (Auto) Eos % (Auto) Baso % (Auto) Neut # (Auto) Lymph # (Auto) [place] # (Auto) Eos # (Auto) Baso # (Auto) PT 21.7 H INR 1.9 APTT Sodium Potassium Chloride Carbon Dioxide Anion Gap BUN Creatinine Est GFR ( Amer) Est GFR (Non-Af Amer) Random Glucose Calcium Total Bilirubin AST ALT Alkaline Phosphatase Troponin I < 0.0120 Total Protein Albumin Globulin Albumin/Globulin Ratio TSH 3rd Generation 1.91 Assessment & Plan - Assessment and Plan (Free Text) Assessment: Exacerbation of underlying lung disease Treatment as outlined by No acute cardiac issues at this time
--- NOTE | 2018-11-30 12:16 | CARD ---
APPROVED REPORT Date of service: 11/29/2018 EKG Measurement Heart [id number] <Conclusion> Normal sinus rhythm Septal infarct, age undetermined ST & T wave abnormality, consider inferolateral ischemia Abnormal ECG
--- NOTE | 2018-11-30 21:00 | CP.PCM.HP ---
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, COPD ILD admitted for increasing SOB Present on Admission - Present on Admission Any Indicators Present on Admission: No Past Patient History - Infectious Disease Hx of Infectious Diseases: None - Past Medical History & Family History Past Medical History?: Yes - Past Social History Alcohol: None Drugs: Denies - CARDIAC Hx Hypertension: Yes - PULMONARY Hx Chronic Obstructive Pulmonary Disease (COPD): Yes Hx Emphysema: Yes Hx Pneumonia: Yes Hx Pulmonary Embolism: Yes - NEUROLOGICAL Hx Migraine: No Hx Seizures: No - HEENT Hx HEENT Problems: No - RENAL Hx Chronic Kidney Disease: No - ENDOCRINE/METABOLIC Hx Hypothyroidism: Yes - HEMATOLOGICAL/ONCOLOGICAL Hx Human Immunodeficiency Virus (HIV): No - INTEGUMENTARY Hx Dermatological Problems: No - MUSCULOSKELETAL/RHEUMATOLOGICAL Hx Arthritis: Yes (knees) - GASTROINTESTINAL Hx Gastritis: Yes - GENITOURINARY/GYNECOLOGICAL Hx Genitourinary Disorders: No - PSYCHIATRIC Hx Anxiety: No Hx Depression: Yes - SURGICAL HISTORY Hx Cholecystectomy: Yes - ANESTHESIA Hx Anesthesia: Yes Hx Anesthesia Reactions: No Hx Malignant Hyperthermia: No Meds Allergies/Adverse Reactions: Allergies Allergy/AdvReac Type Severity Reaction Status Date / Time No Known Allergies Allergy Verified 11/30/18 04:23 Physical Exam - Respiratory Exam Respiratory Exam: NORMAL BREATHING PATTERN - Cardiovascular Exam Cardiovascular Exam: REGULAR RHYTHM - GI/Abdominal Exam GI & Abdominal Exam: Normal Bowel Sounds Results - Vital Signs Recent Vital Signs: Last Vital Signs Temp 98 F 11/30/18 20:17 Pulse 83 11/30/18 20:17 Resp 20 11/30/18 20:17 BP 132/63 11/30/18 20:17 Pulse Ox 94 L 11/30/18 20:17 - Labs Result Diagrams: 11/29/18 20:00 11/29/18 20:00 Labs: Laboratory Results - last 24 hr 11/29/18 11/30/18 11/30/18 20:00 05:15 08:05 PT 21.7 H INR 1.9 Sodium 140 Potassium 4.7 Chloride 99 Carbon Dioxide 27 Anion Gap 19 BUN 11 Creatinine 0.5 L Est GFR ( Amer) > 60 Est GFR (Non-Af Amer) > 60 Random Glucose 108 H Calcium 9.5 Total Bilirubin 0.9 AST 36 ALT 17 Alkaline Phosphatase 76 Troponin I 0.0130 < 0.0120 Total Protein 8.9 H Albumin 4.4 Globulin 4.5 H Albumin/Globulin Ratio 1.0 TSH 3rd Generation 1.91 11/30/18 11:47 PT INR Sodium Potassium Chloride Carbon Dioxide Anion Gap BUN Creatinine Est GFR ( Amer) Est GFR (Non-Af Amer) Random Glucose Calcium Total Bilirubin AST ALT Alkaline Phosphatase Troponin I < 0.0120 Total Protein Albumin Globulin Albumin/Globulin Ratio TSH 3rd Generation Assessment & Plan - Assessment and Plan (Free Text) Assessment: SOB Hx PTE, COPD ILD Admit to telemetry Pulmonary Cardiology - Date & Time Date: 11/30/18 Time: 22:22
[2018-12-01 05:30] LABS: BASO % 0.4 % (0.0-2.0); EOS # 0.2 K/uL (0.0-0.7); EOS % 3.3 % (0.0-4.0); HEMOGLOBIN 12.8 g/dL (12.0-16.0); LYMPH # 2.2 K/uL (1.0-4.3); LYMPH % 31.7 % (20.0-40.0); MEAN CELL VOLUME 91.9 fl (81.0-99.0); MEAN CORPUSCULAR HGB CONC 33.8 g/dL (33.0-37.0); MEAN PLATELET VOLUME 8.1 fl (7.2-11.7); MONO # 0.5 K/uL (0.0-0.8); NEUT # 3.9 K/uL (1.8-7.0); NEUT % 56.6 % (50.0-75.0); RBC 4.12 Mil/uL (3.80-5.20); WHITE BLOOD COUNT 6.8 K/uL (4.8-10.8)
[2018-12-01 05:37] LABS: ALBUMIN 3.5 g/dL (3.5-5.0); ALT/SGPT 20 U/L (9-52); AST/SGOT 18 U/L (14-36); BLOOD UREA NITROGEN 13 mg/dl (7-17); CALCIUM 8.9 mg/dL (8.4-10.2); GFR NON-AFRICAN AMERICAN > 60
[2018-12-01] MEDS: Levothyroxine 100 MCG TAB PO SCH (05:37)
[2018-12-01] MEDS: Fluticasone-Salmeterol 250-50mcg Diskus IH SCH (08:47)
[2018-12-01] MEDS: Pantoprazole 40 mg EC Tab PO SCH (08:48)
[2018-12-01] MEDS ORDERED: methylPREDNISolone 30 MG in Sodium Chloride 0.9% 50 ML IVPB SCH (09:00)
[2018-12-01] MEDS ORDERED: MethylPREDNISolone 40 mg Vial IVP SCH (09:00)
--- NOTE | 2018-12-01 12:48 | CP.PCM.PN ---
<Yunier Hartman - Last Filed: 12/01/18 13:01> Subjective - Date & Time of Evaluation Date of Evaluation: 12/01/18 Time of Evaluation: 08:30 - Subjective Subjective: Pt seen and examined at bedside. Denies acute overnight events. SOB improved. Currently on NC at 2L. Pt reports cough, however, unproductive. Afebrile Objective - Vital Signs/Intake and Output Vital Signs (last 24 hours): Temp Pulse Resp BP Pulse Ox 97.3 F L 88 29 H 143/62 95 12/01/18 12:00 12/01/18 12:00 12/01/18 12:00 12/01/18 09:00 12/01/18 12:00 - Medications Medications: Current Medications Albuterol (Ventolin Hfa 90 Mcg/Actuation (8 G)) 2 puff IH Q4 PRN PRN Reason: Shortness of Breath Azithromycin (Zithromax) 500 mg PO DAILY [facility]; Protocol Last Admin: 12/01/18 08:50 Dose: 500 mg Doxepin HCl (Sinequan) 25 mg PO DAILY [facility] Last Admin: 12/01/18 08:48 Dose: 25 mg Levothyroxine Sodium (Synthroid) 100 mcg PO DAILY@0630 [facility] Last Admin: 12/01/18 05:37 Dose: 100 mcg Losartan Potassium (Cozaar) 50 mg PO DAILY [facility] Last Admin: 12/01/18 08:47 Dose: 50 mg Methylprednisolone (Medrol) 16 mg PO DAILY [facility] Pantoprazole Sodium (Protonix Ec Tab) 40 mg PO DAILY [facility] Last Admin: 12/01/18 08:48 Dose: 40 mg Fluticasone/Salmeterol (Advair Diskus 250/50) 1 puff IH Q12 [facility] Last Admin: 12/01/18 08:47 Dose: 1 puff - Labs Labs: 12/01/18 04:55 12/01/18 04:55 PT 21.7 Seconds (9.8-13.1) H 11/30/18 08:05 INR 1.9 11/30/18 08:05 APTT 32.9 Seconds (25.6-37.1) 11/29/18 20:00 - Eye Exam Eye Exam: EOMI - ENT Exam ENT Exam: Mucous Membranes Moist - Neck Exam Neck Exam: Full ROM - Respiratory Exam Respiratory Exam: Rales (mainly at lower lobes bilaterally and tapering down, while progressing cranially). absent: Chest Wall Tenderness, Respiratory Distress - Cardiovascular Exam Cardiovascular Exam: +S1, +S2 - GI/Abdominal Exam GI & Abdominal Exam: Soft, Normal Bowel Sounds. absent: Tenderness - Neurological Exam Neurological Exam: Alert, Awake - Psychiatric Exam Psychiatric exam: Normal Affect, Normal Mood Assessment and Plan (1) Bronchiectasis Status: Chronic (2) ILD (interstitial lung disease) Status: Chronic (3) Shortness of breath Status: Chronic - Assessment and Plan (Free Text) Assessment: 78 yo F with pmhx of COPD, ILD, and PTE admitted for acute bronchiectasis, symtomatic: SOB. Plan: Pt improving since admission Labs, imaging and team notes reviewed c/w steroids (tapered to PO), Fluticasone/Salmeterol - Albuterol PRN, c/w Azithromycin Pt to resume Antifibrotic therapy with outpatient pulm Future options for optimal ILD management discussed with patient. Case and plan d/w Dr. Radha Hartman MD PGY-2 <Paolo Garcia - Last Filed: 12/01/18 14:21> Subjective - Subjective Subjective: The patient was seen on rounds in the morning with the resident. She appears to be more comfortable today exceeded the bedside chair. She does continue to have some occasional cough which is nonproductive. Her vital signs remained stable and her oxygenation is adequate. Laboratory data as well as physical exam were discussed with the resident. Diagnosis/prognosis and a plan of care were formulated and discussed with the patient. Her daughter was also contacted by phone and given information regarding the current plan. The patient is approaching discharge to home and may continue her previous antibiotic therapy as an outpatient. She has been given information regarding the IPF clinic at [facility] in near syncope. She has been urged to contact the clinic and obtain an appointment for further/improved management. Objective - Vital Signs/Intake and Output Vital Signs (last 24 hours): Temp Pulse Resp BP Pulse Ox 97.3 F L 88 29 H 143/62 95 12/01/18 12:00 12/01/18 12:00 12/01/18 12:00 12/01/18 09:00 12/01/18 12:00 - Medications Medications: Current Medications Albuterol (Ventolin Hfa 90 Mcg/Actuation (8 G)) 2 puff IH Q4 PRN PRN Reason: Shortness of Breath Azithromycin (Zithromax) 500 mg PO DAILY [facility]; Protocol Last Admin: 12/01/18 08:50 Dose: 500 mg Doxepin HCl (Sinequan) 25 mg PO DAILY [facility] Last Admin: 12/01/18 08:48 Dose: 25 mg Levothyroxine Sodium (Synthroid) 100 mcg PO DAILY@0630 [facility] Last Admin: 12/01/18 05:37 Dose: 100 mcg Losartan Potassium (Cozaar) 50 mg PO DAILY [facility] Last Admin: 12/01/18 08:47 Dose: 50 mg Methylprednisolone (Medrol) 16 mg PO DAILY [facility] Pantoprazole Sodium (Protonix Ec Tab) 40 mg PO DAILY [facility] Last Admin: 12/01/18 08:48 Dose: 40 mg Fluticasone/Salmeterol (Advair Diskus 250/50) 1 puff IH Q12 [facility] Last Admin: 12/01/18 08:47 Dose: 1 puff - Labs Labs: 12/01/18 04:55 12/01/18 04:55 PT 21.7 Seconds (9.8-13.1) H 11/30/18 08:05 INR 1.9 11/30/18 08:05 APTT 32.9 Seconds (25.6-37.1) 11/29/18 20:00 Assessment and Plan (1) ILD (interstitial lung disease) Status: Chronic (2) Bronchiectasis Status: Chronic (3) Shortness of breath Status: Chronic
[2018-12-01 16:35] VITALS: TEMP 98.1
--- NOTE | 2018-12-01 18:00 | CP.PCM.PN ---
Subjective - Date & Time of Evaluation Date of Evaluation: 12/01/18 Time of Evaluation: 22:22 - Subjective Subjective: Pulmonary note appreciated Objective - Vital Signs/Intake and Output Vital Signs (last 24 hours): Temp Pulse Resp BP Pulse Ox 98.1 F 107 H 29 H 117/56 L 95 12/01/18 16:00 12/01/18 16:00 12/01/18 16:00 12/01/18 16:00 12/01/18 13:00 - Medications Medications: Current Medications Albuterol (Ventolin Hfa 90 Mcg/Actuation (8 G)) 2 puff IH Q4 PRN PRN Reason: Shortness of Breath Azithromycin (Zithromax) 500 mg PO DAILY [facility]; Protocol Last Admin: 12/01/18 08:50 Dose: 500 mg Doxepin HCl (Sinequan) 25 mg PO DAILY [facility] Last Admin: 12/01/18 08:48 Dose: 25 mg Levothyroxine Sodium (Synthroid) 100 mcg PO DAILY@0630 [facility] Last Admin: 12/01/18 05:37 Dose: 100 mcg Losartan Potassium (Cozaar) 50 mg PO DAILY [facility] Last Admin: 12/01/18 08:47 Dose: 50 mg Methylprednisolone (Medrol) 16 mg PO DAILY [facility] Pantoprazole Sodium (Protonix Ec Tab) 40 mg PO DAILY [facility] Last Admin: 12/01/18 08:48 Dose: 40 mg Fluticasone/Salmeterol (Advair Diskus 250/50) 1 puff IH Q12 [facility] Last Admin: 12/01/18 08:47 Dose: 1 puff - Labs Labs: 12/01/18 04:55 12/01/18 04:55 PT 21.7 Seconds (9.8-13.1) H 11/30/18 08:05 INR 1.9 11/30/18 08:05 APTT 32.9 Seconds (25.6-37.1) 11/29/18 20:00 - Respiratory Exam Respiratory Exam: NORMAL BREATHING PATTERN - Cardiovascular Exam Cardiovascular Exam: REGULAR RHYTHM - GI/Abdominal Exam GI & Abdominal Exam: Normal Bowel Sounds Assessment and Plan - Assessment and Plan (Free Text) Assessment: COPD ILD Cont meds F/U Pulmonary [place] Hx PTE, Coumadin
[2018-12-01 18:14] VITALS: BP 145/69; PULSE 94; RESP 20; O2SAT 97
--- NOTE | 2018-12-03 17:21 | PQF ---
PROVIDER RESPONSE TEXT: All three REVIEWER QUERY TEXT: Condition Necessitating Admission Please clarify the medical conditions and the associated clinical risk factors necessitating admissio n. -Pulmonary fibrosis -Interstitial lung disease -bronchiectasis The patient's Clinical Indicators include: XX Query created by: Rebecca Mauro on 12/02/2018 11:58 AM Electronically signed by: Paolo Arguello MD 12/03/2018 5:18 PM
== END 2018-12-01 17:45 | disposition home or self-care (01) | DRG 197 ==
LOC: H.ER 18:24 → H.ERHOLD 22:53 → H.ICU/CCU 11-30 04:02 → OBSVTOIN 12-01 08:42
PROVIDERS: ADMIT Family Medicine Geriatric Medicine; ATTEND Family Medicine Geriatric Medicine
DX: J84.112 Idiopathic pulmonary fibrosis (principal); J47.1 Bronchiectasis with (acute) exacerbation; Z87.01 Personal history of pneumonia (recurrent); Z86.711 Personal history of pulmonary embolism; J43.9 Emphysema, unspecified; M17.0 Bilateral primary osteoarthritis of knee; I10 Essential (primary) hypertension; K29.70 Gastritis, unspecified, without bleeding; K21.9 Gastro-esophageal reflux disease without esophagitis; E03.9 Hypothyroidism, unspecified; Z79.890 Hormone replacement therapy; F32.9 Major depressive disorder, single episode, unspecified; J84.9 Interstitial pulmonary disease, unspecified